=== PATIENT | female | born 1945 | race Caucasian/White ===

== ENCOUNTER 2018-01-14 13:20 | Emergency (ER) | payer MEDICARE, OTHER ==
--- NOTE | 2018-01-14 14:20 | ED Physician Documentation ---
PD HPI FOCAL NEURO - Stated complaint Stated Complaint: BACK PX,HEAD PX,FOGGY,WEAKNESS,RUNNY NOSE - Chief complaint Chief Complaint: Neuro - History obtained from History obtained from: Patient - History of Present Illness Timing - onset: Other (She has had gradual onset frontal sinus pressure associated with rhinorrhea but breathing okay for the last 4 weeks. She also complains of feeling foggy and some diffuse back pain. She has had a cough but no shortness of breath or fevers. It is not the worst headache of her life, in fact it is pretty mild. There is no associated visual deficits. It was not sudden in onset.) Review of Systems Constitutional: reports: Fatigue. 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 - Present Medications Home Medications: Ambulatory Orders Medication Instructions Recorded Confirmed Hormones 1 ea PO DAILY 08/07/15 08/08/15 Reyes Cit/D3/K/Mag Ox/Stron/Bor 1 amp PO DAILY 08/08/15 08/08/15 [Theracal D4000 Tablet] Multivitamin [Multi-Day Vitamins] 1 ea PO DAILY 08/08/15 08/08/15 Vitamin B Complex [B Complex] 1 ea PO DAILY 08/08/15 08/08/15 Amoxicillin 500 mg PO TID #30 capsule 01/14/18 Losartan [Cozaar] 50 mg PO DAILY 01/14/18 01/14/18 Mometasone Furoate [Nasonex] 1 spray NS BID #1 spray.pump 01/14/18 - Allergies Allergies/Adverse Reactions: Allergies Allergy/AdvReac Type Severity Reaction Status Date / Time Sulfa (Sulfonamide Allergy Respiratory Verified 01/14/18 13:27 Antibiotics) PD ED PE NORMAL - Vitals Vital signs reviewed: Yes - General General: Alert and oriented X 3, No acute distress - HEENT HEENT: PERRL, EOMI, Ears normal, Moist mucous membranes, Pharynx benign - Neck Neck: Supple, no meningeal sign, No bony TTP - Cardiac Cardiac: RRR, No murmur - Respiratory Respiratory: No respiratory distress, Clear bilaterally - Abdomen Abdomen: Non tender - Neuro Neuro: Alert and oriented X 3, tong hooker 2-12 intact, Normal speech Eye Opening: Spontaneous Motor: Obeys Commands Verbal: Oriented GCS Score: 15 - Psych Psych: Normal mood, Normal affect Results - Vitals Vitals: Vital Signs - 24 hr 01/14/18 13:24 Temperature 36.8 C Heart Rate 72 Respiratory 18 Rate Blood Pressure 188/81 H O2 Saturation 100 Oxygen O2 Source Room air - Labs Labs: Laboratory Tests 01/14/18 01/14/18 01/14/18 14:27 14:27 14:27 WBC 4.2 L RBC 4.23 Hgb 12.3 Hct 36.7 L MCV 86.8 MCH 29.1 MCHC 33.5 RDW 13.9 Plt Count 193 MPV 8.0 Neut # 3.0 Lymph # 0.[address] [place] # 0.3 Eos # 0.2 Baso # 0.0 Absolute Nucleated RBC 0.00 Nucleated RBC % 0.0 ESR 7 Sodium 138 Potassium 3.9 Chloride 104 Carbon Dioxide 28 Anion Gap 6.0 BUN 16 Creatinine 0.8 Estimated GFR (MDRD) 71 L Glucose 91 Calcium 8.7 Total Bilirubin 0.7 AST 25 ALT 18 Alkaline Phosphatase 58 C-Reactive Protein < 1.0 Total Protein 6.6 L Albumin 4.0 Globulin 2.6 Albumin/Globulin Ratio 1.5 Lipase 26 - Rads (name of study) CT Head Radiology: EMP read contemporaneously (normal) PD MEDICAL DECISION MAKING - ED course ED course: 72-year-old woman with complaints of headache, been feeling foggy. She has a runny nose and sinus pressure but no real infectious symptoms otherwise. She has a specific concern for pneumonia because she has been exposed but she denies either significant cough or shortness of breath or fevers. She does fit IDSA guidelines for antibiotic treatment for sinusitis given the time course of 4 weeks. Wanted to screen her for giant cell arteritis, her sed rate/CRP are low normal. Departure - Departure Disposition: 01 Home, Self Care Clinical Impression: Sinusitis Qualifiers: Sinusitis location: maxillary Chronicity: acute Recurrence: non-recurrent Qualified Code(s): J01.00 - Acute maxillary sinusitis, unspecified Headache Qualifiers: Headache type: unspecified Headache chronicity pattern: acute headache Intractability: not intractable Qualified Code(s): R51 - Headache Condition: Good Record reviewed to determine appropriate education?: Yes Instructions: ED Headache Sinus Prescriptions: Amoxicillin 500 mg PO TID #30 capsule Mometasone Furoate [Nasonex] 1 spray NS BID #1 spray.pump Comments: Call your doctor to arrange a follow-up appointment, make the next available appointment. In the interim, return anytime if worse or if new symptoms develop. Your blood pressure was elevated today on check into the emergency department. This does not mean that you have hypertension, it is a common phenomenon to come to the emergency department and have elevated blood pressure. I recommend that you see your primary care physician within the week to have it rechecked when you are feeling better.
[2018-01-14 14:35] LABS: BASOPHILS % (AUTO) 0.7 %; EOSINOPHILS # (AUTO) 0.2 10^3/uL (0.0-0.7); EOSINOPHILS % (AUTO) 3.8 %; HGB - HEMOGLOBIN 12.3 g/dL (12.0-16.0); LYMPHOCYTES # (AUTO) 0.7 10^3/uL (1.5-3.5); MEAN CORPUSCULAR HEMOGLOBIN 29.1 pg (27.0-31.0); MEAN CORPUSCULAR HGB CONC 33.5 g/dL (32.0-36.0); MEAN CORPUSCULAR VOLUME 86.8 fL (81.0-99.0); MONOCYTES # (AUTO) 0.3 10^3/uL (0.0-1.0); MONOCYTES % (AUTO) 7.6 %; NEUTROPHILS % (AUTO) 71.9 %; PLT - PLATELET COUNT 193 10^3/uL (130-450); RED BLOOD COUNT 4.23 10^6/uL (4.20-5.40); RED CELL DISTRIBUTION WIDTH 13.9 % (12.0-15.0); WHITE BLOOD COUNT 4.2 x10^3/uL (4.8-10.8)
[2018-01-14 14:54] LABS: ALBUMIN/GLOBULIN RATIO 1.5 (1.0-2.2); ALKALINE PHOSPHATASE 58 IU/L (42-121); ALT ALANINE AMINOTRANSFERASE 18 IU/L (10-60); AST ASPARTATE AMINOTRANSFERASE 25 IU/L (10-42); BILIRUBIN,TOTAL 0.7 mg/dL (0.2-1.0); BUN - BLOOD UREA NITROGEN 16 mg/dL (6-20); CALCIUM 8.7 mg/dL (8.5-10.3); CARBON DIOXIDE - CO2 28 mmol/L (21-32); CHLORIDE 104 mmol/L (101-111); CREATININE 0.8 mg/dL (0.4-1.0); GFR - MDRD 71 (>89); GLUCOSE 91 mg/dL (70-100); LIPASE 26 U/L (22-51); SODIUM 138 mmol/L (135-145); TOTAL PROTEIN 6.6 g/dL (6.7-8.2)
[2018-01-14 14:56] LABS: CRP - C-REACTIVE PROTEIN < 1.0 mg/dL (0-1.0)
--- NOTE | 2018-01-14 15:06 | CT Report ---
EXAM: CT HEAD EXAM DATE: 01/14/2018 02:33 PM. CLINICAL HISTORY: Headache, sinus pain. COMPARISON: None. TECHNIQUE: Multiaxial CT images were obtained from the foramen magnum to the vertex. Reformats: Coron al. IV contrast: None. In accordance with CT protocol optimization, one or more of the following dose reduction techniques w ere utilized for this exam: automated exposure control, adjustment of mA and/or KV based on patient s ize, or use of iterative reconstructive technique. FINDINGS: Parenchyma: No intraparenchymal hemorrhage. No evidence of mass, midline shift, or CT findings of inf arction. Luo-white differentiation is distinct. Mild periventricular hypoattenuation seen. Extraaxial Spaces: Mild atrophy present. No subdural or epidural collections identified. Ventricles: Normal in size and position. Sinuses and Orbits: Imaged paranasal sinuses, orbits, and mastoids show no significant abnormality. Bones: No evidence of fracture or calvarial defect. Other: None. IMPRESSION: Mild senescent changes without CT evidence of acute intracranial disease. No gross air-fl uid levels seen in the sinuses to suggest acute sinusitis. [facility] Referring Provider Line: [phone] SITE ID: [id number]
[2018-01-14 15:25] VITALS: BP 186/86
== END 2018-01-14 15:23 | disposition home or self-care (01) ==
LOC: ED 13:20
DX: J01.00 Acute maxillary sinusitis, unspecified (principal); J44.9 Chronic obstructive pulmonary disease, unspecified; R03.0 Elevated blood-pressure reading, without diagnosis of hypertension
CPT/HCPCS: 36415; 70450; 80053; 83690; 85025; 85651; 86140; 99283

== ENCOUNTER 2018-01-27 02:36 | Emergency (ER) | payer MEDICARE, OTHER ==
[2018-01-27 02:44] VITALS: BP 179/86
[2018-01-27 02:50] LABS: BILIRUBIN,URINE NEGATIVE (NEGATIVE); GLUCOSE, URINE (UA) NEGATIVE (NEGATIVE); KETONES,URINE (UA) NEGATIVE (NEGATIVE); LEUKOCYTE ESTERASE, URINE MODERATE (NEGATIVE); NITRITE,URINE NEGATIVE (NEGATIVE); OCCULT BLOOD,URINE MODERATE (NEGATIVE); PH,URINE 7.5 PH (5.0-7.5); PROTEIN,URINE 30 mg/dL (NEGATIVE); UROBILINOGEN,URINE 0.2 (NORMAL) E.U./dL (NORMAL)
--- NOTE | 2018-01-27 02:56 | ED Physician Documentation ---
PD HPI FEMALE - Stated complaint Stated Complaint: R SIDE/BACK PX - Chief complaint Chief Complaint: UTI - History obtained from History obtained from: Patient - History of Present Illness Timing - onset: Yesterday Timing - details: Gradual onset, Still present Associated symptoms: Abdominal pain, Dysuria, Urinary frequency Similar symptoms before: No diagnosis Recently seen: Emergency Dept - Additional information Additional information: patient is a 72 year old female with a history of htn who is presenting to the emergency department for dysuria, urinary frequency and right sided flank pain. Patient states that she has recently been treated for a sinus infection and had been on amoxicillin. Patient states that she thinks it might have been holding off the bladder infection. patient states that after she finished the antibiotics she has had increased frequency and dysuria. 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 - Present Medications Home Medications: Ambulatory Orders Medication Instructions Recorded Confirmed Hormones 1 ea PO DAILY 08/07/15 08/08/15 Reyes Cit/D3/K/Mag Ox/Stron/Bor 1 amp PO DAILY 08/08/15 08/08/15 [Theracal D4000 Tablet] Multivitamin [Multi-Day Vitamins] 1 ea PO DAILY 08/08/15 08/08/15 Vitamin B Complex [B Complex] 1 ea PO DAILY 08/08/15 08/08/15 Losartan [Cozaar] 50 mg PO DAILY 01/14/18 01/14/18 Mometasone Furoate [Nasonex] 1 spray NS BID #1 spray.pump 01/14/18 Cephalexin [Keflex] 500 mg PO Q8HR 7 Days capsule 01/27/18 Phenazopyridine HCl [Pyridium] 200 mg PO TID PRN #6 tablet 01/27/18 - Allergies Allergies/Adverse Reactions: Allergies Allergy/AdvReac Type Severity Reaction Status Date / Time Sulfa (Sulfonamide Allergy Respiratory Verified 01/27/18 02:41 Antibiotics) - Social History Does the pt smoke?: No Smoking Status: Never smoker Does the pt drink ETOH?: Yes Does the pt have substance abuse?: No - Immunizations Immunizations are current?: Yes - POLST Patient has POLST: No PD ED PE NORMAL - Vitals Vital signs reviewed: Yes - General General: Alert and oriented X 3, No acute distress, Well developed/nourished - HEENT HEENT: Moist mucous membranes - Cardiac Cardiac: RRR - Respiratory Respiratory: No respiratory distress - Abdomen Abdomen: Non distended - Derm Derm: Normal color, Warm and dry - Extremities Extremities: No deformity - Neuro Neuro: Alert and oriented X 3, No motor deficit Eye Opening: Spontaneous Results - Vitals Vitals: Vital Signs - 24 hr 01/27/18 02:38 Temperature 36.9 C Heart Rate 78 Respiratory 16 Rate Blood Pressure 179/86 H O2 Saturation 96 Oxygen O2 Source Room air - Labs Labs: Laboratory Tests 01/27/18 02:44 Urine Color YELLOW Urine Clarity HAZY Urine pH 7.5 Ur Specific [place] 1.010 Urine Protein 30 H Urine Glucose (UA) NEGATIVE Urine Ketones NEGATIVE Urine Occult Blood MODERATE H Urine Nitrite NEGATIVE Urine Bilirubin NEGATIVE Urine Urobilinogen 0.2 (NORMAL) Ur Leukocyte Esterase MODERATE H Urine RBC 6-10 H Urine WBC >25 H Ur Squamous Epith Cells FEW Squamous Urine Bacteria Few Ur Microscopic Review INDICATED Urine Culture Comments INDICATED PD MEDICAL DECISION MAKING - ED course Complexity details: reviewed old records, reviewed results, re-evaluated patient , considered differential, d/w patient ED course: Patient was seen and examined at bedside. patient was well appearing and in no acute distress. Urine was collected and sent. Findings were consistent with urinary tract infection. Patient was started on keflex and pyridium. patient was able to tolerate PO without difficulty. Patient was afebrile and well appearing. Patient required no further work up and was stable for discharge with outpatient follow up. Departure - Departure Disposition: 01 Home, Self Care Clinical Impression: Urinary tract infection Condition: Good Instructions: ED UTI Cystitis Female Follow-Up: primary,care provider [Other] - Within 3 Days Prescriptions: Cephalexin [Keflex] 500 mg PO Q8HR 7 Days capsule Phenazopyridine HCl [Pyridium] 200 mg PO TID PRN #6 tablet PRN Reason: dysuria Comments: Your symptoms today are being caused by a urinary tract infection. you had your first dose of antibiotics tonight and will need to be on them for a week. You should make sure you stay well hydrated and increase your fluid intake. You should follow up with your doctor early next week. You may return to the emergency department at any time for new, worsening or uncontrollable symptoms.
[2018-01-27 02:58] LABS: CLARITY,URINE HAZY (CLEAR)
[2018-01-27 02:59] LABS: BACTERIA,URINE Few /HPF (None Seen); SQUAMOUS EPITHELIAL CELL,UR FEW Squamous (<= Few)
[2018-01-27] MEDS ORDERED: PHENAZOPYRIDINE 100 MG TABLET PO STA (03:03)
[2018-01-27] MEDS ORDERED: cephALEXin 250 MG CAPSULE PO STA (03:03)
== END 2018-01-27 03:11 | disposition home or self-care (01) ==
LOC: ED 02:36
DX: N39.0 Urinary tract infection, site not specified (principal); I10 Essential (primary) hypertension
CPT/HCPCS: 81001; 87086; 87181; 99283; A9270; 81003

== ENCOUNTER 2018-02-08 20:15 | Emergency (ER) | payer MEDICARE, OTHER ==
[2018-02-08 20:33] LABS: BILIRUBIN,URINE NEGATIVE (NEGATIVE); GLUCOSE, URINE (UA) NEGATIVE (NEGATIVE); KETONES,URINE (UA) NEGATIVE (NEGATIVE); LEUKOCYTE ESTERASE, URINE MODERATE (NEGATIVE); NITRITE,URINE NEGATIVE (NEGATIVE); OCCULT BLOOD,URINE MODERATE (NEGATIVE); PROTEIN,URINE NEGATIVE (NEGATIVE); UROBILINOGEN,URINE 0.2 (NORMAL) E.U./dL (NORMAL)
[2018-02-08 20:34] LABS: CLARITY,URINE HAZY (CLEAR)
[2018-02-08] MEDS ORDERED: NITROFURANTOIN MACRO 100 MG CAPSULE PO STA (20:35)
[2018-02-08] MEDS ORDERED: PHENAZOPYRIDINE 100 MG TABLET PO STA (20:35)
--- NOTE | 2018-02-08 20:37 | ED Physician Documentation ---
PD HPI FEMALE - Stated complaint Stated Complaint: FEMALE - Chief complaint Chief Complaint: UTI - History obtained from History obtained from: Patient - History of Present Illness Timing - onset: Today (Just a few hours now urinary frequency and burning dysuria at the end of the stream without flank pain, fevers or nausea. She had a UTI a few weeks ago, grew out E. coli.) Review of Systems Constitutional: denies: Fever, Chills GI: denies: Abdominal Pain, Nausea : reports: Dysuria, Frequency. 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 - Present Medications Home Medications: Ambulatory Orders Medication Instructions Recorded Confirmed Hormones 1 ea PO DAILY 08/07/15 02/08/18 Losartan [Cozaar] 50 mg PO DAILY 01/14/18 02/08/18 Mometasone Furoate [Nasonex] 1 spray NS BID #1 spray.pump 01/14/18 02/08/18 Nitrofurantoin Monohyd/M-Cryst 1 tab PO BID 5 Days capsule 02/08/18 [Macrobid 100 mg Capsule] Phenazopyridine HCl [Pyridium] 200 mg PO TID #6 tablet 02/08/18 - Allergies Allergies/Adverse Reactions: Allergies Allergy/AdvReac Type Severity Reaction Status Date / Time Sulfa (Sulfonamide Allergy Respiratory Verified 02/08/18 20:20 Antibiotics) - Social History Does the pt smoke?: No Smoking Status: Never smoker Does the pt drink ETOH?: Yes Does the pt have substance abuse?: No - Immunizations Immunizations are current?: Yes - POLST Patient has POLST: No PD ED PE NORMAL - Vitals Vital signs reviewed: Yes - General General: Alert and oriented X 3, No acute distress - Abdomen Abdomen: Normal bowel sounds, Soft, Non tender - Back Back: No CVA TTP - Neuro Neuro: Alert and oriented X 3, Normal speech Results - Vitals Vitals: Vital Signs - 24 hr 02/08/18 02/08/18 20:16 20:44 Temperature 36.4 C L Heart Rate 60 76 Respiratory 16 17 Rate Blood Pressure 216/92 H 186/87 H O2 Saturation 100 99 Oxygen O2 Source Room air - Labs Labs: Laboratory Tests 02/08/18 20:27 Urine Color YELLOW Urine Clarity HAZY Urine pH 6.0 Ur Specific [place] <=1.005 Urine Protein NEGATIVE Urine Glucose (UA) NEGATIVE Urine Ketones NEGATIVE Urine Occult Blood MODERATE H Urine Nitrite NEGATIVE Urine Bilirubin NEGATIVE Urine Urobilinogen 0.2 (NORMAL) Ur Leukocyte Esterase MODERATE H Urine RBC 6-10 H Urine WBC >25 H Ur Squamous Epith Cells NONE SEEN Urine Bacteria None Seen Ur Microscopic Review INDICATED Urine Culture Comments INDICATED Departure - Departure Disposition: Home, Self Care Clinical Impression: Cystitis, Uncontrolled hypertension Condition: Good Record reviewed to determine appropriate education?: Yes Instructions: ED UTI Cystitis Female Prescriptions: Nitrofurantoin Monohyd/M-Cryst [Macrobid 100 mg Capsule] 1 tab PO BID 5 Days capsule Phenazopyridine HCl [Pyridium] 200 mg PO TID #6 tablet Comments: Follow-up with Dr. Ibrahim within the week, have her check your blood pressure , potentially adding new medications for your blood pressure. Return if worsening. If you continue to have frequent UTIs also talk with Patrice about referral to gynecology. We will culture your urine, the results should be done in 48-72 hours. If an antibiotic change is necessary we will call you. Return if worse in the meantime, especially if you develop increasing flank pain, fevers, or cannot keep down the medication. Discharge Date/Time: 02/08/18 20:47
[2018-02-08 20:43] LABS: BACTERIA,URINE None Seen /HPF (None Seen); SQUAMOUS EPITHELIAL CELL,UR NONE SEEN (<= Few)
[2018-02-08 20:47] VITALS: BP 186/87
== END 2018-02-08 20:47 | disposition home or self-care (01) ==
LOC: ED 20:15
DX: N30.90 Cystitis, unspecified without hematuria (principal); I10 Essential (primary) hypertension
CPT/HCPCS: 81001; 87086; 99283; A9270; 81003

== ENCOUNTER 2018-03-02 08:00 | Outpatient (CLI) | payer MEDICARE, OTHER ==
[2018-03-03 15:42] LABS: BILIRUBIN,URINE NEGATIVE (NEGATIVE); GLUCOSE, URINE (UA) NEGATIVE (NEGATIVE); KETONES,URINE (UA) NEGATIVE (NEGATIVE); LEUKOCYTE ESTERASE, URINE NEGATIVE (NEGATIVE); NITRITE,URINE NEGATIVE (NEGATIVE); OCCULT BLOOD,URINE NEGATIVE (NEGATIVE); PROTEIN,URINE NEGATIVE (NEGATIVE); UROBILINOGEN,URINE 0.2 (NORMAL) E.U./dL (NORMAL)
[2018-03-03 16:07] LABS: BACTERIA,URINE None Seen /HPF (None Seen); CLARITY,URINE CLEAR (CLEAR); RBC,URINE None Seen /HPF (0-5); SQUAMOUS EPITHELIAL CELL,UR NONE SEEN (<= Few)
== END 2018-03-02 23:59 ==
LOC: LAB.R 08:00
PROVIDERS: ATTEND Obstetrics & Gynecology
DX: R82.99 Other abnormal findings in urine (principal)
CPT/HCPCS: 81001; 87086

== ENCOUNTER 2018-10-16 08:40 | Outpatient (CLI) | payer MEDICARE, OTHER ==
[2018-10-16 09:02] LABS: EOSINOPHILS % (AUTO) 2.8 %; HGB - HEMOGLOBIN 13.4 g/dL (12.0-16.0); LYMPHOCYTES % (AUTO) 29.4 %; MEAN CORPUSCULAR HEMOGLOBIN 27.6 pg (27.0-31.0); MEAN CORPUSCULAR HGB CONC 33.3 g/dL (32.0-36.0); MEAN CORPUSCULAR VOLUME 82.9 fL (81.0-99.0); MEAN PLATELET VOLUME 7.4 fL (7.9-10.8); MONOCYTES % (AUTO) 10.6 %; NEUTROPHILS % (AUTO) 56.2 %; PLT - PLATELET COUNT 216 10^3/uL (130-450); RED BLOOD COUNT 4.83 10^6/uL (4.20-5.40); RED CELL DISTRIBUTION WIDTH 14.8 % (12.0-15.0); WHITE BLOOD COUNT 2.6 x10^3/uL (4.8-10.8)
[2018-10-16 09:04] LABS: ABNORMAL LYMPHS % (MANUAL) 0 %; BAND NEUTROPHILS % (MANUAL) 0 %
[2018-10-16 09:21] LABS: HB2 TOTAL 14.6 g/dL; HEMOGLOBIN A1C 0.5 g/dL; HEMOGLOBIN A1C % 5.3 % (4.6-6.2)
[2018-10-16 09:22] LABS: % IRON SATURATION 21 % (20-50); ALBUMIN 4.4 g/dL (3.2-5.5); ALBUMIN/GLOBULIN RATIO 1.6 (1.0-2.2); ALKALINE PHOSPHATASE 50 IU/L (42-121); ALT ALANINE AMINOTRANSFERASE 18 IU/L (10-60); AST ASPARTATE AMINOTRANSFERASE 24 IU/L (10-42); BILIRUBIN,TOTAL 0.7 mg/dL (0.2-1.0); BUN - BLOOD UREA NITROGEN 17 mg/dL (6-20); CALCIUM 9.5 mg/dL (8.5-10.3); CARBON DIOXIDE - CO2 29 mmol/L (21-32); CHLORIDE 99 mmol/L (101-111); CHOL/HDL RATIO 2.6 (<4.4); CHOLESTEROL 250 mg/dL; CREATININE 0.8 mg/dL (0.4-1.0); GFR - MDRD 70 (>89); GLUCOSE 110 mg/dL (70-100); HDL CHOLESTEROL 95 mg/dL; IRON 87 ug/dL (28-170); LDL CHOLESTEROL,CALCULATED 139 mg/dL; LDL/HDL RATIO 1.5 (<4.4); MAGNESIUM 2.3 mg/dL (1.7-2.8); SODIUM 137 mmol/L (135-145); TOTAL IRON BINDING CAPACITY 414 ug/dL (250-450); TOTAL PROTEIN 7.1 g/dL (6.7-8.2); TRANSFERRIN 296 mg/dL (192-382); URIC ACID 5.4 mg/dL (2.6-7.2); VLDL CHOLESTEROL 16 mg/dL
[2018-10-16 09:35] LABS: THYROID STIMULATING HORMONE 3.7 uIU/mL (0.34-5.60)
[2018-10-16 09:41] LABS: FERRITIN 19.1 ng/mL (11.0-306.8)
[2018-10-16 11:29] LABS: BASOPHILS % (MANUAL) 1 %; EOSINOPHILS # (MANUAL) 0.1 10^3/uL (0-0.7); LYMPHOCYTES % (MANUAL) 31 %; MONOCYTES # (MANUAL) 0.2 10^3/uL (0.0-1.0); MYELOCYTES % (MANUAL) 1 %; NEUTROPHILS # (MANUAL) 1.3 10^3/uL (1.5-6.6); NEUTROPHILS % (MANUAL) 49 %
[2018-10-16 11:30] LABS: DIFFERENTIAL COMMENT MANUAL DIFFERENTIAL
== END 2018-10-16 08:41 | disposition home or self-care (01) ==
LOC: LAB 08:40
PROVIDERS: ATTEND Internal Medicine
DX: K90.9 Intestinal malabsorption, unspecified (principal); R53.83 Other fatigue; R25.2 Cramp and spasm; R00.2 Palpitations; G47.30 Sleep apnea, unspecified; Z13.6 Encounter for screening for cardiovascular disorders; I10 Essential (primary) hypertension; N95.9 Unspecified menopausal and perimenopausal disorder; D72.819 Decreased white blood cell count, unspecified; Z79.899 Other long term (current) drug therapy
CPT/HCPCS: 36415; 80053; 80061; 82607; 82728; 83036; 83540; 83721; 83735; 84425; 84443; 84466; 84550; 85025

== ENCOUNTER 2019-01-09 14:08 | Outpatient (CLI) | payer MEDICARE, OTHER ==
--- NOTE | 2019-01-10 08:50 | Mammography Report ---
Reason: SCREENING MAMMO Procedure Date: 01/09/2019 Accession Number: [id number] / [id number] Procedure: SUSAN - Screening Mammo w/[facility]ner CPT Code: FULL RESULT: EXAM: Screening Mammo DATE: 01/09/2019 2:43 PM CLINICAL HISTORY: Screening encounter. History of early menses. TECHNIQUE: (B) - Bilateral CC and MLO views were obtained. A right laterally exaggerated CC views obtained. COMPARISON: 07/05/2014. PARENCHYMAL PATTERN: (D) - The breast(s) demonstrate(s) heterogeneously dense fibroglandular parenchyma. FINDINGS: There are no suspicious masses, calcifications, or areas of distortion. IMPRESSION: Negative examination. BI-RADS category 1. RECOMMENDATION: (ANNUAL) - Recommend routine annual screening mammography. BI-RADS CATEGORY: (1) - Negative. STANDARD QUALIFYING STATEMENTS: 1. This examination was not reviewed with the aid of Computer-Aided Detection (CAD). 2. A negative or benign imaging report should not preclude biopsy if clinically suspicious findings are present. 3. Dense breasts may obscure an underlying neoplasm. 4. This examination was reviewed without the aid of 3D breast imaging (tomosynthesis).
== END 2019-01-09 14:09 | disposition home or self-care (01) ==
LOC: DI 14:08
PROVIDERS: ATTEND Internal Medicine
DX: Z12.31 Encounter for screening mammogram for malignant neoplasm of breast (principal)
CPT/HCPCS: 77063; 77067

== ENCOUNTER 2019-06-15 14:07 | Emergency (ER) | payer MEDICARE, OTHER ==
--- NOTE | 2019-06-15 14:49 | XRAY Report ---
Reason: Chest Pain Procedure Date: 06/15/2019 Accession Number: [id number] / [id number] Procedure: XR - Chest 1 View X-Ray CPT Code: 60831 FULL RESULT: EXAM: CHEST RADIOGRAPHY EXAM DATE: 06/15/2019 02:42 PM. CLINICAL HISTORY: Chest Pain. COMPARISON: None. TECHNIQUE: 1 view. FINDINGS: LUNGS: The lungs are clear. PLEURA: No significant pleural effusion. No clinically significant pneumothorax. MEDIASTINUM: Heart and mediastinal contours are notable for aortic calcification. The cardiac silhouette is normal in size. BONES: No suspicious osseous lesions. IMPRESSION: No acute cardiopulmonary abnormality. [facility]
--- NOTE | 2019-06-15 15:08 | ED Physician Documentation ---
History of Present Illness - Stated complaint Stated Complaint: PATRICIO BARRAGAN - Chief complaint Chief Complaint: Cardiac - History obtained from History obtained from: Patient - History of Present Illness Pain level max: 8 Pain level now: 0 - Additonal information Additional information: 74-year-old female states approximately 5 to 6 hours ago began to feel a tightness across her back and in her shoulder blades bilaterally. She states that she occasionally has had this type of discomfort over the years. She states that it then spread to her chest and made her chest feel tight. She states that she had trouble breathing and was nauseated. Nothing made it better or worse. Does not have a history of acute coronary syndrome. Does have a history of hypertension. She quit smoking 20 to 30 years ago. She states that she did drink wine last night and had coffee this morning. Does not have a recent cardiac stress test. Review of Systems Ten Systems: 10 systems reviewed and negative Constitutional: denies: Fever, Chills Nose: denies: Rhinorrhea / runny nose Throat: denies: Sore throat Cardiac: reports: Chest pain / pressure Respiratory: reports: Dyspnea. 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 - Present Medications Home Medications: Ambulatory Orders Medication Instructions Recorded Confirmed Hormones 1 ea PO DAILY 08/07/15 02/08/18 Losartan [Cozaar] 50 mg PO DAILY 01/14/18 02/08/18 Mometasone Furoate [Nasonex] 1 spray NS BID #1 spray.pump 01/14/18 02/08/18 Nitrofurantoin Monohyd/M-Cryst 1 tab PO BID 5 Days capsule 02/08/18 [Macrobid 100 mg Capsule] Phenazopyridine HCl [Pyridium] 200 mg PO TID #6 tablet 02/08/18 - Allergies Allergies/Adverse Reactions: Allergies Allergy/AdvReac Type Severity Reaction Status Date / Time Sulfa (Sulfonamide Allergy Respiratory Verified 06/15/19 14:20 Antibiotics) - Social History Does the pt smoke?: No Smoking Status: Never smoker Does the pt drink ETOH?: Yes Does the pt have substance abuse?: No - Immunizations Immunizations are current?: Yes - POLST Patient has POLST: No PD ED PE NORMAL - Vitals Vital signs reviewed: Yes - General General: Alert and oriented X 3, No acute distress, Well developed/nourished - HEENT HEENT: Moist mucous membranes - Neck Neck: Supple, no meningeal sign - Cardiac Cardiac: RRR, Strong equal pulses - Respiratory Respiratory: No respiratory distress, Clear bilaterally - Abdomen Abdomen: Soft, Non tender, Non distended - Derm Derm: Warm and dry - Extremities Extremities: No edema, No calf tenderness / cord - Neuro Neuro: Alert and oriented X 3 - Psych Psych: Normal mood, Normal affect Results - Vitals Vitals: Vital Signs - 24 hr 06/15/19 06/15/19 06/15/19 14:18 15:30 16:58 Temperature 36.0 C L 36.7 C Heart Rate 69 62 71 Respiratory 12 12 17 Rate Blood Pressure 158/72 H 160/82 H 151/66 H O2 Saturation 100 98 97 Oxygen O2 Source Room air - EKG (time done) 1414 Rate: Rate (enter#) (70) Rhythm: NSR [place]: Normal Intervals: Normal [place] Ischemia: Normal ST segments, Q waves (V1-3) - Labs Labs: Laboratory Tests 06/15/19 06/15/19 06/15/19 15:00 15:20 15:20 WBC 3.2 L RBC 4.15 L Hgb 11.5 L Hct 35.9 L MCV 86.5 MCH 27.7 MCHC 32.0 RDW 13.3 Plt Count 204 MPV 10.1 Neut # (Auto) 2.0 Lymph # (Auto) 0.8 L [place] # (Auto) 0.3 Eos # (Auto) 0.1 Baso # (Auto) 0.0 Absolute Nucleated RBC 0.00 Nucleated RBC % 0.0 Sodium 139 Potassium 3.4 L Chloride 100 L Carbon Dioxide 28 Anion Gap 11.0 BUN 20 Creatinine 0.8 Estimated GFR (MDRD) 70 L Glucose 97 Calcium 9.4 Total Bilirubin 0.8 AST 23 ALT 15 Alkaline Phosphatase 51 Troponin I High Sens Total Protein 7.4 Albumin 4.4 Globulin 3.0 Albumin/Globulin Ratio 1.5 Lipase 34 Urine Color LT. YELLOW Urine Clarity CLEAR Urine pH 7.0 Ur Specific Hart <=1.005 Urine Protein NEGATIVE Urine Glucose (UA) NEGATIVE Urine Ketones NEGATIVE Urine Occult Blood NEGATIVE Urine Nitrite NEGATIVE Urine Bilirubin NEGATIVE Urine Urobilinogen 0.2 (NORMAL) Ur Leukocyte Esterase NEGATIVE Ur Microscopic Review NOT INDICATED Urine Culture Comments NOT INDICATED 06/15/19 15:20 WBC RBC Hgb Hct MCV MCH MCHC RDW Plt Count MPV Neut # (Auto) Lymph # (Auto) [place] # (Auto) Eos # (Auto) Baso # (Auto) Absolute Nucleated RBC Nucleated RBC % Sodium Potassium Chloride Carbon Dioxide Anion Gap BUN Creatinine Estimated GFR (MDRD) Glucose Calcium Total Bilirubin AST ALT Alkaline Phosphatase Troponin I High Sens 3.3 Total Protein Albumin Globulin Albumin/Globulin Ratio Lipase Urine Color Urine Clarity Urine pH Ur Specific Hart Urine Protein Urine Glucose (UA) Urine Ketones Urine Occult Blood Urine Nitrite Urine Bilirubin Urine Urobilinogen Ur Leukocyte Esterase Ur Microscopic Review Urine Culture Comments - Rads (name of study) Chest x-ray Radiology: Prelim report reviewed, EMP read contemporaneously, See rad report (No acute cardiopulmonary abnormality) CT chest Radiology: Prelim report reviewed, EMP read contemporaneously, See rad report (No aneurysm or dissection. 2. 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 Liver cysts ) PD MEDICAL DECISION MAKING - ED course Complexity details: reviewed results, re-evaluated patient, considered differential (No ST elevation [place], no aortic dissection, no PE, no tension pneumothorax, no aortic aneurysm), d/w patient ED course: 74-year-old female presents to the emergency department with back and chest pain. No acute findings on chest x-ray, EKG or laboratory testing. CT of the chest was performed to evaluate for potential aortic dissection and/or aneurysm. This was negative, but does reveal a narrowing of the celiac artery. We will have her follow-up with her doctor for this. She does not seem to be having postprandial pain. She is asymptomatic here. No evidence of acute coronary syndrome. Possible GERD? She drank wine last night and only coffee this morning. She may benefit from an EGD to evaluate for GERD. Patient counseled regarding signs and symptoms for which I believe and urgent re-evaluation would be necessary. Patient with good understanding of and agreement to plan and is comfortable going home at this time This document was made in part using voice recognition software. While efforts are made to proofread this document, sound alike and grammatical errors may occur. Departure - Departure Disposition: Home, Self Care Clinical Impression: Chest pain Qualifiers: Chest pain type: unspecified Qualified Code(s): R07.9 - Chest pain, unspecified Condition: Good Instructions: ED Chest Pain Atypical Unkn Cause Follow-Up: Swati Ibrahim MD [Primary Care Provider] - Within 1 week Comments: The cause of your symptoms is unclear, but may be related to your esophagus. An EGD would be useful and this can be arranged with your doctor. Your heart tests are normal today. You do have a narrowing in 1 of the arteries in your followed up with your doctor. Return if you worsen. Start on a baby aspirin daily. CT chest results: No aneurysm or dissection. 2. 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 Liver cysts Discharge Date/Time: 06/15/19 16:59
[2019-06-15 15:35] LABS: BASOPHILS % (AUTO) 0.6 %; EOSINOPHILS # (AUTO) 0.1 10^3/uL (0.0-0.7); EOSINOPHILS % (AUTO) 1.6 %; HGB - HEMOGLOBIN 11.5 g/dL (12.0-16.0); LYMPHOCYTES # (AUTO) 0.8 10^3/uL (1.5-3.5); LYMPHOCYTES % (AUTO) 25.5 %; MEAN CORPUSCULAR HEMOGLOBIN 27.7 pg (27.0-31.0); MEAN CORPUSCULAR VOLUME 86.5 fL (81.0-99.0); MEAN PLATELET VOLUME 10.1 fL (7.9-10.8); MONOCYTES # (AUTO) 0.3 10^3/uL (0.0-1.0); MONOCYTES % (AUTO) 9.3 %; NEUTROPHILS % (AUTO) 62.7 %; PLT - PLATELET COUNT 204 10^3/uL (130-450); RED BLOOD COUNT 4.15 10^6/uL (4.20-5.40); RED CELL DISTRIBUTION WIDTH 13.3 % (12.0-15.0); WHITE BLOOD COUNT 3.2 x10^3/uL (4.8-10.8)
[2019-06-15 15:41] LABS: BILIRUBIN,URINE NEGATIVE (NEGATIVE); GLUCOSE, URINE (UA) NEGATIVE (NEGATIVE); KETONES,URINE (UA) NEGATIVE (NEGATIVE); LEUKOCYTE ESTERASE, URINE NEGATIVE (NEGATIVE); NITRITE,URINE NEGATIVE (NEGATIVE); OCCULT BLOOD,URINE NEGATIVE (NEGATIVE); PROTEIN,URINE NEGATIVE (NEGATIVE); UROBILINOGEN,URINE 0.2 (NORMAL) E.U./dL (NORMAL)
[2019-06-15 15:42] LABS: ALBUMIN 4.4 g/dL (3.2-5.5); ALBUMIN/GLOBULIN RATIO 1.5 (1.0-2.2); BILIRUBIN,TOTAL 0.8 mg/dL (0.2-1.0); CALCIUM 9.4 mg/dL (8.5-10.3); CREATININE 0.8 mg/dL (0.4-1.0); TOTAL PROTEIN 7.4 g/dL (6.7-8.2)
[2019-06-15 15:43] LABS: CLARITY,URINE CLEAR (CLEAR)
[2019-06-15] MEDS ORDERED: IOVERSOL 320 100 ML VIAL IVP ONE ×2 (15:58→16:27)
--- NOTE | 2019-06-15 16:45 | CT Report ---
Reason: back pain, chest pain, eval aorta Procedure Date: 06/15/2019 Accession Number: [id number] / [id number] Procedure: CT - ANGIO CHEST W/WO CPT Code: FULL RESULT: EXAM: CT ANGIOGRAM CHEST EXAM DATE: 06/15/2019 04:24 PM. CLINICAL HISTORY: Back pain, chest pain, eval aorta. COMPARISON: None. TECHNIQUE: Routine helical imaging was performed through the chest in the arterial phase. IV contrast: 80 cc Optiray 320. Reconstructions: Coronal, sagittal, and 3D MIP reconstructions of the aorta. FINDINGS: Vascular Structures: No aneurysm, dissection, of the thoracic aorta. Atherosclerotic changes of the aorta. Ascending aorta 3.3 cm. The visualized pulmonary arteries are within normal limits. Narrowing of the celiac artery post stenotic dilatation. SMA patent. Narrowing origin of bilateral renal arteries. Lungs/Pleura: No consolidation, nodules, or edema. No effusions or pneumothorax. Dependent changes. Mediastinum: Mild coronary artery calcifications. No pericardial effusion. No significant adenopathy. Upper Abdomen: Liver cysts. Other: DJD spine. Scattered hemangiomas. IMPRESSION: 1. No aneurysm or dissection. 2. 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 Liver cysts RADIA
[2019-06-15 16:59] VITALS: BP 151/66
== END 2019-06-15 16:59 | disposition home or self-care (01) ==
LOC: ED 14:07
DX: R07.89 Other chest pain (principal); M54.9 Dorsalgia, unspecified; I10 Essential (primary) hypertension; I77.4 Celiac artery compression syndrome; I70.1 Atherosclerosis of renal artery; K76.89 Other specified diseases of liver; Z87.891 Personal history of nicotine dependence
CPT/HCPCS: 36415; 71045; 71275; 80053; 81003; 83690; 84484; 85025; 93005; 99284; Q9967; 81001; 87086

== ENCOUNTER 2019-11-30 07:09 | Outpatient (CLI) | payer MEDICARE, OTHER ==
--- NOTE | 2019-12-03 13:54 | Ultrasound Report ---
Reason: ABD PAIN Procedure Date: 11/30/2019 Accession Number: [id number] / [id number] Procedure: US - Arterial Visceral Complete CPT Code: Final Report FULL RESULT: EXAM: MESENTERIC ARTERY DOPPLER ULTRASOUND EXAM DATE: 11/30/2019 08:14 AM. CLINICAL HISTORY: Abdominal pain x1 year. Arterial stricture. Hypertension. COMPARISON: CTA chest 06/15/2019. TECHNIQUE: Real-time sonographic vascular imaging was performed by the social media campaign manager through the mesenteric arterial system with a linear transducer utilizing color-flow, Doppler flow and spectral analysis. Multiple brand representative static images were saved for review. FINDINGS: Aorta: 105.2 cm/s Celiac Ribera: Origin: 45.5 cm/s Prox: 234.7 cm/s Mid: 241.4 cm/s Dist: 125.3 cm/s SMA: Origin: 153.1 cm/s Prox: 342.6 cm/s Mid: 243.2 cm/s Dist: 164.0 cm/s Hepatic Artery: 197.7 cm/s Splenic Artery: 134.5 cm/s ROXANNE: Origin: 57.8 cm/s Prox: 112.4 cm/s Mid: 111.7 cm/s Dist: 123.6 cm/s IMPRESSION: 1. Elevated Doppler velocity from the proximal celiac artery is compatible with vessel narrowing as seen on CTA chest, presumably from the median arcuate ligament. 2. Apparent Doppler velocity acceleration of proximal SMA does not correlate with appearance on the CTA chest (which showed no proximal SMA stenosis). 3. Nonspecific elevated Doppler velocities of the common hepatic and splenic arteries, with no vessel stenosis seen on limited evaluation by CTA chest. Comment: Consider dedicated CTA abdomen (or MRA abdomen) if clinically appropriate. RADIA
== END 2019-11-30 07:10 | disposition home or self-care (01) ==
LOC: DI 07:09
PROVIDERS: ATTEND Internal Medicine
DX: I77.1 Stricture of artery (principal); R10.9 Unspecified abdominal pain
CPT/HCPCS: 93975

== ENCOUNTER 2019-12-24 21:21 | Outpatient (CLI) | payer MEDICARE, OTHER ==
[2019-12-24 21:54] LABS: CREATININE 0.9 mg/dL (0.4-1.0)
== END 2019-12-24 21:22 | disposition home or self-care (01) ==
LOC: LAB 21:21
PROVIDERS: ATTEND Internal Medicine
DX: R79.89 Other specified abnormal findings of blood chemistry (principal)
CPT/HCPCS: 82565

== ENCOUNTER 2019-12-25 12:48 | Outpatient (CLI) | payer MEDICARE, OTHER ==
[2019-12-25] MEDS ORDERED: IOVERSOL 320 100 ML VIAL IVP ONE ×2 (13:03→15:30)
--- NOTE | 2019-12-26 09:31 | CT Report ---
Reason: ABN ABD USD Procedure Date: 12/25/2019 Accession Number: [id number] / [id number] Procedure: CT - ANGIO ABDOMEN W/WO CPT Code: Final Report FULL RESULT: EXAM: CTA ABDOMEN AND PELVIS INDICATION: Abdominal pain. TECHNIQUE: Following intravenous administration of 90 mL of Optiray 320 contrast, axial sections were obtained through the abdomen and pelvis. Multiplanar 3D reconstructions are available for interpretation. In accordance with CT protocol optimization, one or more of the following dose reduction techniques were utilized for this exam: automated exposure control, adjustment of mA and/or KV based on patient size, or use of iterative reconstructive technique. COMPARISON: CHEST ANGIO 06/15/2019 4:20 PM. FINDINGS: MEASUREMENTS: At the level of the diaphragm, the aorta measures 2.0 x 2.3 mm. Above the renal arteries, the aorta measures 2.0 x 2.2 mm. Below the renal arteries, the aorta measures 1.7 x 1.9 mm. Above the iliac bifurcation, the aorta measures 1.5 x 1.5 mm. The right common iliac artery measures 8 mm. The left common iliac artery measures 11 mm. UPPER ABDOMINAL AORTA: The takeoffs of the celiac artery and SMA appear patent. Moderate mural calcification of the upper abdominal aorta. MESENTERIC ARTERIES: Appear patent. RENAL ARTERIES: Mild atheromatous calcifications at the origins, without significant stenosis. DISTAL AORTA AND ILIAC ARTERIES: Moderate mural calcification. No abdominal aortic dissection is identified. CT ABDOMEN AND PELVIS: Stable appearance of 1 cm cystic foci at the right hepatic lobe dome. The spleen, pancreas, adrenal glands, and kidneys appear within normal limits. No bowel obstruction. No pathologically enlarged lymph nodes. IMPRESSION: No aneurysmal dilatation or dissection identified of the abdominal aorta. Moderate atherosclerotic changes. RADIA
== END 2019-12-25 12:49 | disposition home or self-care (01) ==
LOC: LAB 12:48
PROVIDERS: ATTEND Internal Medicine
DX: I70.0 Atherosclerosis of aorta (principal)
CPT/HCPCS: 74175; Q9967

== ENCOUNTER 2020-07-25 10:14 | Day surgery (SDC) | payer MEDICARE, OTHER ==
[2020-07-25] MEDS ORDERED: LACTATED RINGERS 1,000 ML IV ONE ×2 (10:25→12:42)
[2020-07-25] MEDS ORDERED: MIDAZOLAM 2 MG/2 ML VIAL IVP ONE (11:40)
[2020-07-25] MEDS ORDERED: fentaNYL 250 MCG/5 ML VIAL IVP ONE (11:40)
[2020-07-25 13:00] VITALS: BP 124/54
== END 2020-07-25 10:15 | disposition home or self-care (01) ==
LOC: SDS 10:14
PROVIDERS: ATTEND Surgery
DX: Z12.11 Encounter for screening for malignant neoplasm of colon (principal); K57.30 Diverticulosis of large intestine without perforation or abscess without bleeding; I10 Essential (primary) hypertension; G47.30 Sleep apnea, unspecified; Z86.010 Personal history of colon polyps
CPT/HCPCS: G0105; J3010; J7120

== ENCOUNTER 2020-12-25 14:38 | Outpatient (CLI) | payer MEDICARE, OTHER ==
--- NOTE | 2020-12-25 16:25 | MRI Report ---
PROCEDURE: Knee LT W/O INDICATIONS: LT KNEE PAIN TECHNIQUE: Noncontrast sagittal PD fast spin echo and T2 fast spin echo with fat saturation, sagittal 3-D gradie nt sequence with fat saturation; coronal T1 spin echo and PD fast spin echo with fat saturation, and axial PD fast spin echo with fat saturation through the knee. COMPARISON: None. FINDINGS: Menisci: Medial meniscal tear involving the body and posterior horn with macerated appearance. Abnormal signal suggestive superior and inferior articular surfaces. There is also partial extrusion Minimal blunting of the free margin of the lateral meniscus. Cruciate ligaments: Anterior cruciate ligament appears intact although there is marked thickening, internal T2 hyperinten se signal changes and striated appearance suggestive of mucoid degeneration (versus chronic sprain). Posterior cruciate ligament appears intact. Medial structures: The medial collateral ligament appears intact. The semimembranosus tendon appears intact. Visualized portions of the pes anserinus tendons appear normal. No abnormal bursal fluid. Lateral structures: Lateral collateral ligament appears grossly intact. Biceps femoris tendon appears intact. Iliotibial band within normal limits. Popliteus tendon within normal limits. Anterior structures: Mild patellar tendinopathy, with prepatellar and superficial infrapatellar edema. The quadriceps tendon appears intact. Medial and lateral patellofemoral ligaments appear grossly intact. Patellar alignment is normal. Hoffa's fat pad unremarkable. Bones and cartilage: No bone marrow contusions or fractures. Within the medial compartment, diffuse partial thickness loss of the femoral and tibial cartilage. Pa rtial thickness loss of the posterior medial cartilage, with underlying subchondral cystic change and marrow edema. Within the lateral compartment, diffuse surface fraying of the femoral and tibial cartilage. Within the patellofemoral compartment, no focal cartilage defect. Joint space: Small joint effusion. No Garcia?s cyst. No specific evidence of loose body identified. IMPRESSION: Medial meniscal tear involving the body and posterior horn with slight partial extrusion. Blunted appearance of the free margin of the lateral meniscus Thickening and internal signal changes of the ACL suggestive of mucoid degeneration, versus chronic a ge indeterminate sprain. Mild patellar tendinopathy Mild degenerative joint disease as above Small joint effusion Reviewed by: Man Pineda MD on 12/25/2020 4:24 PM PDT Approved by: Man Pineda MD on 12/25/2020 4:24 PM PDT Station ID: [id number]
== END 2020-12-25 14:39 | disposition home or self-care (01) ==
LOC: DI 14:38
PROVIDERS: ATTEND Internal Medicine
DX: S83.242A Other tear of medial meniscus, current injury, left knee, initial encounter (principal); M23.8X2 Other internal derangements of left knee; M67.962 Unspecified disorder of synovium and tendon, left lower leg; M17.12 Unilateral primary osteoarthritis, left knee; M25.462 Effusion, left knee

== ENCOUNTER 2021-01-12 08:00 | Outpatient (CLI) | payer MEDICARE, OTHER ==
--- NOTE | 2021-01-12 14:04 | XRAY Report ---
PROCEDURE: Knee 4 View LT INDICATIONS: KNEE PAIN, LEFT TECHNIQUE: 4 views of the left knee(s) were acquired. COMPARISON: None. FINDINGS: Bones: No fractures or dislocations. No suspicious bony lesions. Mild to moderate medial and minim al medial patellofemoral compartment narrowing is present. Periarticular osteophytes are noted. No er osions. Soft tissues: No joint effusion. No suspicious soft tissue calcifications. 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 Reviewed by: Benita Silverman MD on 01/12/2021 2:03 PM PDT Approved by: Benita Silverman MD on 01/12/2021 2:03 PM PDT Station ID: [id number]
== END 2021-01-12 23:59 | disposition home or self-care (01) ==
LOC: DI.N 08:00
PROVIDERS: ATTEND Orthopaedic Surgery
DX: M17.12 Unilateral primary osteoarthritis, left knee (principal)

== ENCOUNTER 2021-03-14 19:41 | Emergency (ER) | payer MEDICARE, OTHER ==
[2021-03-14] MEDS ORDERED: CHERRY SYRUP 10 ML UDC PO ONE (21:10)
[2021-03-14] MEDS ORDERED: DEXAMETHASONE 10 MG/ML VIAL PO STA (21:10)
[2021-03-14] MEDS ORDERED: KETOROLAC 60 MG/2 ML VIAL IM STA (21:10)
--- NOTE | 2021-03-14 21:15 | ED Physician Documentation ---
PD HPI NECK PAIN - Stated complaint Stated Complaint: STIFF NECK - Chief complaint Chief Complaint: General - History obtained from History obtained from: Patient - History of Present Illness Timing - onset: How many weeks ago (1) Timing - duration: Weeks (1) Timing - details: Gradual onset, Still present Location: Other (neck, shoulders, head) Quality: Pain, Spasm, Sharp, Similar to prior episodes Associated symptoms: Other (pain down arms). No: Fever, Weakness, Numbness, Incontinent of urine, Unable to urinate, Hematuria, Incontinent of stool Improves with: Rest, Position, Meds Worsened by: Movement Contributing factors: Other (has had these problems for 40 years never this bad) Similar symptoms before: Diagnosis (neck spasm) Recently seen: Clinic, Other - Additional information Additional information: 70-year-old female with a history of COPD and hypertension has developed pain in her neck similar to what she has had episodes over the past 40 years. She states that this is much worse than she has had previously and that it involves her entire shoulders her neck up into her head and she has not been able to move her head well. She is gone in to see the chiropractor she had some improvement with that had recurrence of pain has seen Dr. Ibrahim is been placed on some baclofen and did not get the usual improvement she has had previously. She has had neck in order for x-ray of her neck and she has not had these imaging studies done yet. She has never had imaging of her neck and she has never been tested for polymyalgia rheumatica. Review of Systems Constitutional: denies: Fever Eyes: denies: Decreased vision Ears: denies: Ear pain Nose: denies: Congestion Throat: denies: Sore throat Cardiac: denies: Chest pain / pressure, Palpitations Respiratory: denies: Dyspnea, Cough GI: denies: Abdominal Pain, Nausea, Vomiting, Constipation, Diarrhea : denies: Dysuria, Frequency Skin: denies: Rash Musculoskeletal: reports: Neck pain, Back pain, Extremity pain Neurologic: reports: Headache. 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 - Present Medications Home Medications: Ambulatory Orders Medication Instructions Recorded Confirmed Hormones 1 ea PO DAILY 08/07/15 02/08/18 Losartan [Cozaar] 50 mg PO DAILY 01/14/18 02/08/18 Mometasone Furoate [Nasonex] 1 spray NS BID #1 spray.pump 01/14/18 02/08/18 Nitrofurantoin Monohyd/M-Cryst 1 tab PO BID 5 Days capsule 02/08/18 [Macrobid 100 mg Capsule] Phenazopyridine HCl [Pyridium] 200 mg PO TID #6 tablet 02/08/18 predniSONE [Deltasone] 2 tablet PO DAILY #10 tablet 03/14/21 - Allergies Allergies/Adverse Reactions: Allergies Allergy/AdvReac Type Severity Reaction Status Date / Time Sulfa (Sulfonamide Allergy Respiratory Verified 03/14/21 19:49 Antibiotics) - Social History Does the pt smoke?: No Smoking Status: Never smoker Does the pt drink ETOH?: Yes Does the pt have substance abuse?: No - Immunizations Immunizations are current?: Yes - POLST Patient has POLST: No PD ED PE NORMAL - Vitals Vital signs reviewed: Yes (Hypertension) - General General: Alert and oriented X 3, Well developed/nourished, Other (75-year-old female who moves her entire body to look around appears to have a stiff neck) - HEENT HEENT: Atraumatic, PERRL, EOMI - Neck Neck: Other (muscles of the neck are stiff with reduced ROM. 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, No motor deficit, No sensory deficit, Normal speech Eye Opening: Spontaneous Motor: Obeys Commands Verbal: Oriented GCS Score: 15 - Psych Psych: Normal mood, Normal affect Results - Vitals Vitals: Vital Signs - 24 hr 03/14/21 03/14/21 03/14/21 19:50 22:00 22:56 Temperature 37.0 C 36.7 C 36.7 C Heart Rate 81 68 65 Respiratory 18 16 16 Rate Blood Pressure 140/61 H 128/63 124/60 O2 Saturation 98 96 94 Oxygen O2 Source Room air - Labs Labs: Laboratory Tests 03/14/21 03/14/21 03/14/21 21:15 21:15 21:15 WBC 6.1 RBC 4.45 Hgb 11.9 L Hct 38.0 MCV 85.4 MCH 26.7 L MCHC 31.3 L RDW 13.8 Plt Count 264 MPV 9.0 Neut # (Auto) 4.7 Lymph # (Auto) 0.7 L [place] # (Auto) 0.6 Eos # (Auto) 0.1 Baso # (Auto) 0.0 Absolute Nucleated RBC 0.00 Nucleated RBC % 0.0 ESR 31 H Sodium 138 Potassium 3.4 L Chloride 99 L Carbon Dioxide 28 Anion Gap 11.0 BUN 17 Creatinine 0.8 Estimated GFR (MDRD) 70 L Glucose 111 H Calcium 9.2 Total Bilirubin 0.6 AST 17 ALT 12 Alkaline Phosphatase 78 Total Protein 7.6 Albumin 4.3 Globulin 3.3 Albumin/Globulin Ratio 1.3 Lipase 26 - Rads (name of study) CT cervical spine Radiology: Prelim report reviewed (Impression: No acute fracture or dislocation. Degenerative changes.), EMP read indepedently, See rad report PD MEDICAL DECISION MAKING - ED course Complexity details: reviewed old records, reviewed results, re-evaluated patient, considered differential, d/w patient ED course: 35-year-old female with a stiff neck that she has had intermittently over the past 40 years has worsening of her symptoms she has symptoms consistent with polymyalgia rheumatica although this is not the typical presentation of this disease process. She has never had imaging done of her neck and she has never been able to tilt her neck back. Tonight we provided dexamethasone 10 mg orally and 60 mg of Toradol we are doing a CT exam of the neck and we are checking her sedimentation rate. We did find the sedimentation rate was mildly elevated I took additional history from the patient indicating that her symptoms are worse in the morning when she wakes up and somewhat better during the day when she is active. This is consistent with the diagnosis of polymyalgia rheumatica. Tonight we have given her a dose of dexamethasone I am expecting that she may have some improvement by morning and I have indicated to this the patient that this this particular entity is very sensitive to steroid. I will prescribe 20 mg of prednisone daily for 5 days on this patient and I am asking her to follow-up with her doctor within that timeframe for continuation of steroid or not. Departure - Departure Disposition: 01 Home, Self Care Clinical Impression: Polymyalgia rheumatica Condition: Stable Instructions: Understanding Polymyalgia Rheumatica, ED Neck Back Pain General Follow-Up: Swati Ibrahim MD [Primary Care Provider] - Prescriptions: predniSONE [Deltasone] 2 tablet PO DAILY #10 tablet
[2021-03-14 21:21] LABS: BASOPHILS % (AUTO) 0.5 %; EOSINOPHILS # (AUTO) 0.1 10^3/uL (0.0-0.7); EOSINOPHILS % (AUTO) 1.1 %; HGB - HEMOGLOBIN 11.9 g/dL (12.0-16.0); LYMPHOCYTES # (AUTO) 0.7 10^3/uL (1.5-3.5); LYMPHOCYTES % (AUTO) 11.4 %; MEAN CORPUSCULAR HEMOGLOBIN 26.7 pg (27.0-31.0); MEAN CORPUSCULAR HGB CONC 31.3 g/dL (32.0-36.0); MEAN CORPUSCULAR VOLUME 85.4 fL (81.0-99.0); MONOCYTES # (AUTO) 0.6 10^3/uL (0.0-1.0); MONOCYTES % (AUTO) 10.3 %; NEUTROPHILS # (AUTO) 4.7 10^3/uL (1.5-6.6); NEUTROPHILS % (AUTO) 76.4 %; PLT - PLATELET COUNT 264 10^3/uL (130-450); RED BLOOD COUNT 4.45 10^6/uL (4.20-5.40); RED CELL DISTRIBUTION WIDTH 13.8 % (12.0-15.0); WHITE BLOOD COUNT 6.1 x10^3/uL (4.8-10.8)
[2021-03-14 21:35] LABS: ALBUMIN 4.3 g/dL (3.2-5.5); ALBUMIN/GLOBULIN RATIO 1.3 (1.0-2.2); BILIRUBIN,TOTAL 0.6 mg/dL (0.2-1.0); CALCIUM 9.2 mg/dL (8.5-10.3); CREATININE 0.8 mg/dL (0.4-1.0); POTASSIUM 3.4 mmol/L (3.5-5.0); TOTAL PROTEIN 7.6 g/dL (6.7-8.2)
[2021-03-14 22:57] VITALS: BP 124/60
--- NOTE | 2021-03-15 07:42 | CT Report ---
PROCEDURE: CERVICAL SPINE WO INDICATIONS: neck pain TECHNIQUE: Noncontrast 3 mm thick sections acquired from the skull base to the T4 level. Sagittal and coronal r eformats were then constructed. For radiation dose reduction, the following was used: automated exp osure control, adjustment of mA and/or kV according to patient size. COMPARISON: None. FINDINGS: Image quality: Excellent. Bones: No fractures or dislocations. Visualized superior ribs are intact. Degenerative changes are seen, with at least moderate disc space narrowing at C3-C4, C4-C5, C5-6, and C6-C7. Bridging anterior osteophytes are seen, which are worst within the lower cervical spine. Post erior directed endplate osteophytes are seen, which are most prominent at C5-C6. Focal degenerative c hange can also be seen involving the C1-C2 interface anteriorly. No frankly suspicious lytic or blastic lesions are seen. There is a likely bone island seen within th e C7 spinous process, as on series 7 image 50. Soft tissues: Prevertebral soft tissues are normal in thickness. No paravertebral hematomas. No ap ical pneumothoraces. Prominent atherosclerotic calcification can be seen, particularly involving the aortic arch. IMPRESSION: Negative for acute fracture. Advanced degenerative changes are seen, which are most prominent inferiorly. Note: No significant discrepancy from the preliminary report. Reviewed by: Hunter Lozano MD on 03/15/2021 6:41 AM LIZY Approved by: Hunter Lozano MD on 03/15/2021 6:41 AM LIZY Station ID: [id number]
== END 2021-03-14 23:26 | disposition home or self-care (01) ==
LOC: ED 19:41
DX: M35.3 Polymyalgia rheumatica (principal); M43.6 Torticollis; M47.812 Spondylosis without myelopathy or radiculopathy, cervical region; I10 Essential (primary) hypertension; J44.9 Chronic obstructive pulmonary disease, unspecified
CPT/HCPCS: 36415; 72125; 80053; 83690; 85025; 85651; 96372; 99284; A9270

== ENCOUNTER 2022-01-01 08:00 | Outpatient (CLI) | payer MEDICARE, OTHER ==
[2022-01-01 17:26] LABS: BASOPHILS % (AUTO) 1.5 %; EOSINOPHILS % (AUTO) 3.8 %; HCT - HEMATOCRIT 35.8 % (37.0-47.0); HGB - HEMOGLOBIN 11.3 g/dL (12.0-16.0); LYMPHOCYTES % (AUTO) 25.8 %; MEAN CORPUSCULAR HEMOGLOBIN 26.6 pg (27.0-31.0); MEAN CORPUSCULAR HGB CONC 31.6 g/dL (32.0-36.0); MEAN CORPUSCULAR VOLUME 84.2 fL (81.0-99.0); MEAN PLATELET VOLUME 10.3 fL (7.9-10.8); MONOCYTES % (AUTO) 8.7 %; NEUTROPHILS % (AUTO) 59.8 %; PLT - PLATELET COUNT 281 10^3/uL (130-450); RED BLOOD COUNT 4.25 10^6/uL (4.20-5.40); RED CELL DISTRIBUTION WIDTH 14.3 % (12.0-15.0); WHITE BLOOD COUNT 2.6 x10^3/uL (4.8-10.8)
[2022-01-01 17:31] LABS: ABNORMAL LYMPHS % (MANUAL) 0 %
[2022-01-01 17:42] LABS: % IRON SATURATION 7 % (20-50); ALBUMIN 4.3 g/dL (3.2-5.5); ALBUMIN/GLOBULIN RATIO 1.5 (1.0-2.2); ALKALINE PHOSPHATASE 52 IU/L (42-121); ALT ALANINE AMINOTRANSFERASE 16 IU/L (10-60); AST ASPARTATE AMINOTRANSFERASE 21 IU/L (10-42); BILIRUBIN,TOTAL 0.4 mg/dL (0.2-1.0); BUN - BLOOD UREA NITROGEN 30 mg/dL (6-20); CALCIUM 9.1 mg/dL (8.5-10.3); CARBON DIOXIDE - CO2 27 mmol/L (21-32); CHLORIDE 101 mmol/L (101-111); CHOL/HDL RATIO 2.2 (<4.4); CHOLESTEROL 229 mg/dL; CREATININE 0.7 mg/dL (0.4-1.0); GFR - MDRD 81 (>89); GLUCOSE 93 mg/dL (70-100); HDL CHOLESTEROL 105 mg/dL; IRON 36 ug/dL (28-170); LDL CHOLESTEROL,CALCULATED 113 mg/dL; LDL/HDL RATIO 1.1 (<4.4); POTASSIUM 3.6 mmol/L (3.5-5.0); SODIUM 137 mmol/L (135-145); TOTAL IRON BINDING CAPACITY 521 ug/dL (250-450); TOTAL PROTEIN 7.2 g/dL (6.7-8.2); TRANSFERRIN 372 mg/dL (192-382); TRIGLYCERIDES 55 mg/dL; VLDL CHOLESTEROL 11 mg/dL
[2022-01-01 17:52] LABS: THYROID STIMULATING HORMONE 2.35 uIU/mL (0.34-5.60)
[2022-01-01 17:59] LABS: BAND NEUTROPHILS % (MANUAL) 1 %; EOSINOPHILS # (MANUAL) 0.2 10^3/uL (0-0.7); FERRITIN 8.1 ng/mL (11.0-306.8); LYMPHOCYTES # (MANUAL) 0.7 10^3/uL (1.5-3.5); LYMPHOCYTES % (MANUAL) 19 %; MONOCYTES # (MANUAL) 0.3 10^3/uL (0.0-1.0); NEUTROPHILS # (MANUAL) 1.5 10^3/uL (1.5-6.6); RBC MORPHOLOGY (MULTIPLE) NORMAL APPEARANCE (NORMAL); REACTIVE LYMPHS % (MANUAL) 6 %
[2022-01-01 18:00] LABS: DIFFERENTIAL COMMENT MANUAL DIFFERENTIAL; PLATELET ESTIMATE, MANUAL NORMAL (130-450,000) (NORMAL); PLATELET MORPHOLOGY NORMAL APPEARANCE (NORMAL)
[2022-01-01 20:40] LABS: ESTIMATED AVERAGE GLUCOSE 114 mg/dL (70-100); HEMOGLOBIN A1c% 5.6 % (4.27-6.07)
== END 2022-01-01 08:01 | disposition home or self-care (01) ==
LOC: LAB.R 08:00
PROVIDERS: ATTEND Internal Medicine
DX: Z00.00 Encounter for general adult medical examination without abnormal findings (principal); J44.9 Chronic obstructive pulmonary disease, unspecified; M79.673 Pain in unspecified foot; H40.9 Unspecified glaucoma; H91.90 Unspecified hearing loss, unspecified ear; E61.1 Iron deficiency; I10 Essential (primary) hypertension; R73.01 Impaired fasting glucose; Z86.010 Personal history of colon polyps; M25.569 Pain in unspecified knee; D72.819 Decreased white blood cell count, unspecified; M54.2 Cervicalgia; Z13.6 Encounter for screening for cardiovascular disorders; G47.30 Sleep apnea, unspecified; Z79.899 Other long term (current) drug therapy
CPT/HCPCS: 80053; 80061; 82607; 82728; 83036; 83540; 83721; 84443; 84466; 85025

== ENCOUNTER 2022-02-26 08:04 | Outpatient (CLI) | payer MEDICARE ==
--- NOTE | 2022-03-02 12:06 | XRAY Report ---
PROCEDURE: Foot 3 View BILAT INDICATIONS: Bilateral foot pain. TECHNIQUE: 3 views of the foot were acquired. COMPARISON: None. FINDINGS: Right foot: Bones: No acute fractures or dislocations. A plantar calcaneal spur is present. Mild scattered dege nerative changes for example at the first MTP joint and scattered IP joints. Soft tissues: No tibiotalar joint effusion. Left foot: Bones: No acute fractures or dislocations. A plantar calcaneal spur is present. Mild scattered dege nerative changes for example at the first MTP joint and scattered IP joints. Soft tissues: No tibiotalar joint effusion. IMPRESSION: 1. No acute osseous abnormality. 2. Mild degenerative changes of each foot. Reviewed by: Sagar Sevilla MD on 02/26/2022 9:23 AM PDT Approved by: Sagar Sevilla MD on 02/26/2022 9:23 AM PDT Station ID: [id number]
== END 2022-02-26 08:05 | disposition home or self-care (01) ==
LOC: DI 08:04
PROVIDERS: ATTEND Podiatrist
DX: M19.072 Primary osteoarthritis, left ankle and foot (principal); M19.071 Primary osteoarthritis, right ankle and foot; M77.32 Calcaneal spur, left foot; M77.31 Calcaneal spur, right foot

== ENCOUNTER 2022-04-01 15:01 | Outpatient (CLI) | payer MEDICARE ==
--- NOTE | 2022-04-02 14:38 | Ultrasound Report ---
PROCEDURE: Duplex Lwr Ext Arterial Bilat INDICATIONS: DISORDER OF ARTERIES AND ARTERIOLES TECHNIQUE: Color and pulse Doppler interrogation was performed of both lower extremity arterial systems, with im age documentation. COMPARISON: None FINDINGS: Right lower extremity: Common femoral artery: 134 cm/sec, with triphasic flow. Deep femoral artery: 101 cm/sec, with triphasic flow. Proximal superficial femoral artery: 100 cm/sec, with triphasic flow. Mid superficial femoral artery: 149 cm/sec, with triphasic flow. Distal superficial femoral artery: 92 cm/sec, with triphasic/biphasic flow. Popliteal artery: 57 cm/sec, with triphasic/biphasic flow. Posterior tibial artery: 63 cm/sec, with biphasic with monophasic distally flow. Anterior tibial artery/dorsalis pedis: 132/129 cm/sec, with triphasic/triphasic flow. Luo-scale imaging description: Mild to moderate diffuse scattered plaque. Left lower extremity: Common femoral artery: 156 cm/sec, with triphasic flow. Deep femoral artery: 69 cm/sec, with triphasic flow. Proximal superficial femoral artery: 85 cm/sec, with triphasic flow. Mid superficial femoral artery: 190 cm/sec, with triphasic flow. Distal superficial femoral artery: 94 cm/sec, with triphasic flow. Popliteal artery: 64 cm/sec, with triphasic/biphasic flow. Posterior tibial artery: 138 cm/sec, with triphasic flow. Anterior tibial artery/dorsalis pedis: 91/70 triphasic/triphasic cm/sec, with flow. 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 Reviewed by: Benita Silverman MD on 04/02/2022 2:36 PM PDT Approved by: Benita Silverman MD on 04/02/2022 2:36 PM PDT Station ID: [id number]
--- NOTE | 2022-04-02 17:10 | Ultrasound Report ---
PROCEDURE: Carotid Doppler Complete INDICATIONS: DISORDER OF ARTERIES AND ARTERIOLES TECHNIQUE: Color and pulse Doppler interrogation was performed of both carotid systems, with image documentation and velocity measurements. COMPARISON: None. FINDINGS: Right side: Brachial blood pressure: 144/60 mm Hg. Common carotid artery peak systolic velocity: 74 cm/sec. Internal carotid artery peak systolic velocity: 76 cm/sec. Internal carotid artery end diastolic velocity: 24 cm/sec. External carotid artery peak systolic velocity: 116 cm/sec. ICA/CCA peak systolic ratio: 1.0 . Luo scale imaging description: Moderate plaque at the bifurcation Percent internal carotid artery stenosis: Less than 50% . Vertebral artery: Flow direction is antegrade. Left side: Brachial blood pressure: 143/63 mm Hg. Common carotid artery peak systolic velocity: 67 cm/sec. Internal carotid artery peak systolic velocity: 73 cm/sec. Internal carotid artery end diastolic velocity: 24 cm/sec. External carotid artery peak systolic velocity: 98 cm/sec. ICA/CCA peak systolic ratio: 1.1 . Luo scale imaging description: Mild to moderate plaque at the bifurcation Percent internal carotid artery stenosis: Less than 50% . Vertebral artery: Flow direction is antegrade. IMPRESSION: Less than 50% stenosis of the internal carotid arteries bilaterally. The estimate of stenosis included in the report of the imaging study was calculated using the NASCET method Reviewed by: Benita Silverman MD on 04/02/2022 5:09 PM PDT Approved by: Benita Silverman MD on 04/02/2022 5:09 PM PDT Station ID: [id number]
== END 2022-04-01 15:02 | disposition home or self-care (01) ==
LOC: DI 15:01
PROVIDERS: ATTEND Internal Medicine
DX: I65.23 Occlusion and stenosis of bilateral carotid arteries (principal); I70.201 Unspecified atherosclerosis of native arteries of extremities, right leg
CPT/HCPCS: 93880; 93925

== ENCOUNTER 2022-11-28 09:39 | Emergency (ER) | payer MEDICARE ==
[2022-11-28 10:29] LABS: BILIRUBIN,URINE NEGATIVE (NEGATIVE); GLUCOSE, URINE (UA) NEGATIVE (NEGATIVE); KETONES,URINE (UA) 40 mg/dL (NEGATIVE); LEUKOCYTE ESTERASE, URINE NEGATIVE (NEGATIVE); NITRITE,URINE NEGATIVE (NEGATIVE); OCCULT BLOOD,URINE NEGATIVE (NEGATIVE); PROTEIN,URINE NEGATIVE (NEGATIVE); UROBILINOGEN,URINE 0.2 (NORMAL) E.U./dL (NORMAL)
[2022-11-28 10:31] LABS: CLARITY,URINE CLEAR (CLEAR)
[2022-11-28 10:33] LABS: BASOPHILS % (AUTO) 0.9 %; HCT - HEMATOCRIT 36.6 % (37.0-47.0); HGB - HEMOGLOBIN 11.7 g/dL (12.0-16.0); LYMPHOCYTES # (AUTO) 0.3 10^3/uL (1.5-3.5); LYMPHOCYTES % (AUTO) 13.4 %; MEAN CORPUSCULAR HEMOGLOBIN 25.9 pg (27.0-31.0); MEAN PLATELET VOLUME 9.2 fL (7.9-10.8); MONOCYTES # (AUTO) 0.2 10^3/uL (0.0-1.0); MONOCYTES % (AUTO) 11.1 %; NEUTROPHILS # (AUTO) 1.6 10^3/uL (1.5-6.6); NEUTROPHILS % (AUTO) 74.1 %; PLT - PLATELET COUNT 234 10^3/uL (130-450); RED BLOOD COUNT 4.52 10^6/uL (4.20-5.40); RED CELL DISTRIBUTION WIDTH 15.3 % (12.0-15.0); WHITE BLOOD COUNT 2.2 x10^3/uL (4.8-10.8)
[2022-11-28 10:41] LABS: SLIDE REVIEW? Indicated
[2022-11-28 10:50] LABS: ALBUMIN 4.4 g/dL (3.2-5.5); ALBUMIN/GLOBULIN RATIO 1.4 (1.0-2.2); BILIRUBIN,TOTAL 0.4 mg/dL (0.2-1.0); CALCIUM 9.1 mg/dL (8.5-10.3); CREATININE 0.7 mg/dL (0.4-1.0); TOTAL PROTEIN 7.5 g/dL (6.7-8.2)
[2022-11-28] MEDS ORDERED: HYDROmorphone 1 MG/ML CARPUJECT IVP STA (10:50)
[2022-11-28] MEDS ORDERED: SODIUM CHLORIDE 0.9% 500 ML IV STA (10:50)
[2022-11-28] MEDS ORDERED: ONDANSETRON 4 MG/2 ML VIAL IVP STA (10:50)
[2022-11-28] MEDS ORDERED: SODIUM CHLORIDE 0.9% 1,000 ML IV STA (10:50)
--- NOTE | 2022-11-28 10:52 | ED Physician Documentation ---
History of Present Illness - Stated complaint Stated Complaint: VOMITTING/RT HIP PX - Chief complaint Chief Complaint: Abd Pain - History obtained from History obtained from: Patient, Family - History of Present Illness Timing: How many days ago (2-3) Pain level max: 7 Pain level now: 5 - Additonal information Additional information: Patient is a 77-year-old female who presents to the emergency department complaining of right-sided flank and back pain that she describes as right hip pain. Patient states that this started 2 to 3 days ago, worse with movement, better with a heating pad. She states that last night she developed nausea and "dry heaves". No diarrhea or constipation. She states she takes medication for high blood pressure. She states that she has had a hysterectomy in the past. No recent illnesses. Has not taken anything for pain. Review of Systems Constitutional: denies: Fever, Chills Nose: denies: Rhinorrhea / runny nose, Congestion Throat: denies: Sore throat Cardiac: denies: Chest pain / pressure, Palpitations Respiratory: denies: Dyspnea, Cough GI: reports: Abdominal Pain (Right-sided/right flank), Nausea, Vomiting. 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: Hysterectomy - Present Medications Home Medications: Ambulatory Orders Medication Instructions Recorded Confirmed Hormones 1 ea PO DAILY 08/07/15 02/08/18 Losartan [Cozaar] 50 mg PO DAILY 01/14/18 02/08/18 Mometasone Furoate [Nasonex] 1 spray NS BID #1 spray.pump 01/14/18 02/08/18 Nitrofurantoin Monohyd/M-Cryst 1 tab PO BID 5 Days capsule 02/08/18 [Macrobid 100 mg Capsule] Phenazopyridine HCl [Pyridium] 200 mg PO TID #6 tablet 02/08/18 predniSONE [Deltasone] 2 tablet PO DAILY #10 tablet 03/14/21 HYDROcod/ACETAM 5/325 [[place] 5/325] 1 - 2 ea PO Q6H PRN #14 tablet 11/28/22 Ondansetron Odt [Zofran] 4 mg TL Q6H PRN #10 tablet 11/28/22 - Allergies Allergies/Adverse Reactions: Allergies Allergy/AdvReac Type Severity Reaction Status Date / Time Sulfa (Sulfonamide Allergy Respiratory Verified 11/28/22 10:00 Antibiotics) - Social History Does the pt smoke?: No Smoking Status: Never smoker Does the pt drink ETOH?: Yes Does the pt have substance abuse?: No - Immunizations Immunizations are current?: Yes - POLST Patient has POLST: No PD ED PE NORMAL - Vitals Vital signs reviewed: Yes - General General: Alert and oriented X 3, No acute distress - HEENT HEENT: PERRL, Moist mucous membranes - Neck Neck: Supple, no meningeal sign - Cardiac Cardiac: RRR, Strong equal pulses - Respiratory Respiratory: No respiratory distress, Clear bilaterally - Abdomen Abdomen: Soft, Non distended, Other (Tender to palpation right lower quadrant. No peritoneal signs.) - Back Back: No CVA TTP, No spinal TTP - Derm Derm: Warm and dry, No rash - Extremities Extremities: Other (Full range of motion of the right hip without pain on passive range of motion. She does have some mild tenderness in the right lower lumbar area, about 4 cm from the spine. No rash) - Neuro Neuro: Alert and oriented X 3 - Psych Psych: Normal mood, Normal affect Results - Vitals Vitals: Vital Signs - 24 hr 11/28/22 11/28/22 11/28/22 09:57 10:29 12:08 Temperature 36.5 C Heart Rate 66 64 64 Respiratory 24 20 15 Rate Blood Pressure 148/63 H O2 Saturation 99 95 93 If not protocol : Oxygen Flow, liters/minute 11/28/22 11/28/22 14:06 15:06 Temperature 36.5 C Heart Rate 65 66 Respiratory 12 12 Rate Blood Pressure 127/58 L 124/60 O2 Saturation 99 98 If not protocol 2 : Oxygen Flow, liters/minute Oxygen O2 Source Nasal cannula - Labs Labs: Laboratory Tests 11/28/22 11/28/22 11/28/22 10:20 10:30 10:30 WBC 2.2 L RBC 4.52 Hgb 11.7 L Hct 36.6 L MCV 81.0 MCH 25.9 L MCHC 32.0 RDW 15.3 H Plt Count 234 MPV 9.2 Neut # (Auto) 1.6 Lymph # (Auto) 0.3 L [place] # (Auto) 0.2 Eos # (Auto) 0.0 Baso # (Auto) 0.0 Absolute Nucleated RBC 0.00 Nucleated RBC % 0.0 Manual Slide Review Indicated Platelet Estimate NORMAL (130-450,000) Platelet Morphology NORMAL APPEARANCE RBC Morph Micro Appear NORMAL APPEARANCE Sodium 132 L Potassium 3.0 L Chloride 96 L Carbon Dioxide 25 Anion Gap 11.0 BUN 10 Creatinine 0.7 Estimated GFR (MDRD) 81 L Glucose 135 H Calcium 9.1 Total Bilirubin 0.4 AST 24 ALT 15 Alkaline Phosphatase 64 Total Protein 7.5 Albumin 4.4 Globulin 3.1 Albumin/Globulin Ratio 1.4 Lipase 31 Urine Color YELLOW Urine Clarity CLEAR Urine pH 7.0 Ur Specific Cres[place] 1.015 Urine Protein NEGATIVE Urine Glucose (UA) NEGATIVE Urine Ketones 40 H Urine Occult Blood NEGATIVE Urine Nitrite NEGATIVE Urine Bilirubin NEGATIVE Urine Urobilinogen 0.2 (NORMAL) Ur Leukocyte Esterase NEGATIVE Ur Microscopic Review NOT INDICATED Urine Culture Comments NOT INDICATED Nasal Adenovirus (PCR) Nasal B. parapertussis DNA (PCR) Nasal Coronavir 229E PCR Nasal Coronavir HKU1 PCR Nasal Coronavir NL63 PCR Nasal Coronavir OC43 PCR Nasal Enterovir/Rhinovir PCR Nasal Influenza B PCR Nasal Influenza A PCR Nasal Parainfluen 1 PCR Nasal Parainfluen 2 PCR Nasal Parainfluen 3 PCR Nasal Parainfluen 4 PCR Nasal RSV (PCR) Nasal B.pertussis DNA PCR Nasal C.pneumoniae (PCR) [place] Human Metapneumo PCR Nasal M.pneumoniae (PCR) Nasal SARS-CoV-2 (PCR) 11/28/22 12:05 WBC RBC Hgb Hct MCV MCH MCHC RDW Plt Count MPV Neut # (Auto) Lymph # (Auto) [place] # (Auto) Eos # (Auto) Baso # (Auto) Absolute Nucleated RBC Nucleated RBC % Manual Slide Review Platelet Estimate Platelet Morphology RBC Morph Micro Appear Sodium Potassium Chloride Carbon Dioxide Anion Gap BUN Creatinine Estimated GFR (MDRD) Glucose Calcium Total Bilirubin AST ALT Alkaline Phosphatase Total Protein Albumin Globulin Albumin/Globulin Ratio Lipase Urine Color Urine Clarity Urine pH Ur Specific Crescent Urine Protein Urine Glucose (UA) Urine Ketones Urine Occult Blood Urine Nitrite Urine Bilirubin Urine Urobilinogen Ur Leukocyte Esterase Ur Microscopic Review Urine Culture Comments Nasal Adenovirus (PCR) NOT DETECTED Nasal B. parapertussis DNA (PCR) NOT DETECTED Nasal Coronavir 229E PCR NOT DETECTED Nasal Coronavir HKU1 PCR NOT DETECTED Nasal Coronavir NL63 PCR NOT DETECTED Nasal Coronavir OC43 PCR NOT DETECTED Nasal Enterovir/Rhinovir PCR NOT DETECTED Nasal Influenza B PCR NOT DETECTED Nasal Influenza A PCR NOT DETECTED Nasal Parainfluen 1 PCR NOT DETECTED Nasal Parainfluen 2 PCR NOT DETECTED Nasal Parainfluen 3 PCR NOT DETECTED Nasal Parainfluen 4 PCR NOT DETECTED Nasal RSV (PCR) NOT DETECTED Nasal B.pertussis DNA PCR NOT DETECTED Nasal C.pneumoniae (PCR) NOT DETECTED [place] Human Metapneumo PCR NOT DETECTED Nasal M.pneumoniae (PCR) NOT DETECTED Nasal SARS-CoV-2 (PCR) DETECTED A - Rads (name of study) ct abd/pelvis Relevant Findings:: Final report received, See rad report PD Medical Decision Making - ED course Complexity details: reviewed results, re-evaluated patient, considered differential, d/w patient ED course: Patient is a 77-year-old female who presents to the emergency department with nausea, vomiting and she keeps stating right hip pain but points to her right lower back. Her CT scan does not show any significant abnormalities. Her laboratory testing reveals a positive COVID test. She has a mild leukopenia and mild anemia. Her sodium is mildly low, potassium is mildly low. Urinalysis consistent with dehydration and ketones. No hypoxia or respiratory distress. She did have a small amount of hypoxia after the pain medication but this resolved quickly. Tolerating p.o. without difficulty after IV Toradol, IV Dilaudid and IV Zofran and Phenergan. The patient is interested in taking antivirals for COVID. We will start her on molnupiravir due to Paxlovid interactions with her other medications. We will prescribe pain medication and nausea medication for home. Patient is ambulating without difficulty and tolerating p.o. without difficulty. Patient counseled regarding signs and symptoms for which I believe and urgent re-evaluation would be necessary. Patient with good understanding of and agreement to plan and is comfortable going home at this time This document was made in part using voice recognition software. While efforts are made to proofread this document, sound alike and grammatical errors may occur. Departure - Departure Disposition: 01 Home, Self Care Clinical Impression: COVID-19 Vomiting Qualifiers: Vomiting type: unspecified Nausea presence: with nausea Qualified Code(s): R11.2 - Nausea with vomiting, unspecified Low back pain Qualifiers: Chronicity: acute Back pain laterality: right Sciatica presence: without sciatica Qualified Code(s): M54.50 - Low back pain, unspecified Condition: Good Instructions: ED Viral Syndrome, ED Nausea Vomiting Follow-Up: Swati Ibrahim MD [Primary Care Provider] - Within 1 week Prescriptions: HYDROcod/ACETAM 5/325 [[place] 5/325] 1 - 2 ea PO Q6H PRN #14 tablet PRN Reason: Pain Ondansetron Odt [Zofran] 4 mg TL Q6H PRN #10 tablet PRN Reason: Nausea / Vomiting Comments: Your prescriptions were sent to [facility] in [place]. Use the medication as needed. Take the molnupiravir as prescribed. Please follow-up with your doctor for further care. Please return if you worsen. Discharge Date/Time: 11/28/22 15:06
[2022-11-28] MEDS ORDERED: iohexoL-300 100 ML VIAL ONE (10:54)
[2022-11-28 10:58] LABS: PLATELET ESTIMATE, MANUAL NORMAL (130-450,000) (NORMAL); PLATELET MORPHOLOGY NORMAL APPEARANCE (NORMAL); RBC MORPHOLOGY (MULTIPLE) NORMAL APPEARANCE (NORMAL)
[2022-11-28] MEDS ORDERED: iohexoL-300 100 ML VIAL IVP ONE (11:27)
--- NOTE | 2022-11-28 11:29 | CT Report ---
PROCEDURE: ABDOMEN/PELVIS W INDICATIONS: R sided abd pain CONTRAST: 100ml omni 300 TECHNIQUE: After the administration of IV contrast, 5 mm thick sections acquired from the diaphragms to the symp hysis. 5 mm thick coronal and sagittal reformats were acquired. For radiation dose reduction, the f ollowing was used: automated exposure control, adjustment of mA and/or kV according to patient size. COMPARISON: CT dated 12/25/2019 FINDINGS: Image quality: Excellent. ABDOMEN: Lung bases: Lung bases are clear. Heart size is normal. Calcification of the coronary vasculature. Solid organs: Liver and spleen are normal in size and enhancement. Gallbladder is within normal arriaga its Biliary system is non dilated. Pancreas enhances normally. No adrenal nodules. Kidneys demons trate normal size and enhancement, without hydronephrosis. Peritoneum and bowel: Bowel loops demonstrate normal wall thickness and caliber. No free fluid or a ir. Appendix not seen. No evidence of appendicitis. Nodes and vessels: No retroperitoneal or mesenteric adenopathy by size criteria. Aorta and inferior vena cava are normal in size. Miscellaneous: No ventral hernias. PELVIS: Genitourinary: Bladder wall thickness is normal. Miscellaneous: No inguinal hernias or adenopathy. Bones: No suspicious bony lesions. No vertebral body compression fractures. IMPRESSION: 1. No acute process. 2. Appendix not seen. No evidence of appendicitis. 3. Coronary artery disease. Reviewed by: Julio Honeycutt MD on 11/28/2022 11:28 AM PDT Approved by: Julio Honeycutt MD on 11/28/2022 11:28 AM PDT Station ID: [id number]
[2022-11-28] MEDS ORDERED: PROMETHAZINE INJ 25 MG in SODIUM CHLORIDE 0.9% 50 ML IV STA (11:56)
[2022-11-28] MEDS ORDERED: KETOROLAC 30 MG/ML VIAL IVP STA (12:01)
[2022-11-28] MEDS ORDERED: MORPHINE 2 MG/ML CARPUJECT IVP STA (12:01)
[2022-11-28 13:03] LABS: B. PARAPERTUSSIS- RESP PCR PAN NOT DETECTED; B. PERTUSSIS- RESP PCR PANEL NOT DETECTED; C. PNEUMONIAE- RESP PCR PANEL NOT DETECTED; CORONAVIRUS 229E-RESP PCR NOT DETECTED; CORONAVIRUS HKU1-RESP PCR NOT DETECTED; CORONAVIRUS NL63-RESP PCR NOT DETECTED; CORONAVIRUS OC43-RESP PCR NOT DETECTED; HUMAN METAPNEUMOVIRUS NOT DETECTED; INFLUENZA A- RESP PCR PANEL NOT DETECTED; INFLUENZA B - RESP PCR PANEL NOT DETECTED; M. PNEUMONIAE- RESP PCR PANEL NOT DETECTED; PARAINFLUENZA VIRUS 1 NOT DETECTED; PARAINFLUENZA VIRUS 2 NOT DETECTED; PARAINFLUENZA VIRUS 3 NOT DETECTED; PARAINFLUENZA VIRUS 4 NOT DETECTED; RHINOVIRUS/ENTEROVIRUS NOT DETECTED; RSV- RESP PCR PANEL NOT DETECTED
[2022-11-28 13:05] LABS: SARS-CoV-2 -RESP PCR PANEL DETECTED
[2022-11-28] MEDS ORDERED: MOLNUPIRAVIR PREPACK PO STA (14:52)
[2022-11-28 15:07] VITALS: BP 124/60
== END 2022-11-28 15:06 | disposition home or self-care (01) ==
LOC: ED 09:39
DX: U07.1 COVID-19 (principal); R11.2 Nausea with vomiting, unspecified; M54.50 Low back pain, unspecified; I10 Essential (primary) hypertension; J44.9 Chronic obstructive pulmonary disease, unspecified; Z79.899 Other long term (current) drug therapy
CPT/HCPCS: 36415; 74177; 80053; 81003; 83690; 85025; 87633; 96361; 96365; 96375; 99284; 99285; J1170; J3490; J7040; Q9967; 81001; 87086

== ENCOUNTER 2023-06-29 07:01 | Emergency (ER) | payer OTHER, MEDICARE ==
--- NOTE | 2023-06-29 07:32 | ED Physician Documentation ---
PD HPI UPPER EXT INJURY - Stated complaint Stated Complaint: RT ARM INJ - Chief complaint Chief Complaint: Trauma Ext - History obtained from History obtained from: Patient - History of Present Illness Location: Right, Shoulder Type of injury: Twist Where injury occurred: Work (works at [employer] across [address] from hospital.) Timing - onset: How many hours ago (1) Timing - duration: Hours (1) Timing - details: Abrupt onset, Still present Worsened by: Moving, Palpating (anterior shoulder) Associated symptoms: Weakness (feels weaker for general ROM of the shoulder, she feels due to pain.). No: Numbness Similar symptoms before: No diagnosis (has had some pains in area with repetitive lifting at work previously but brief and improves. 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 : None HEENT: Glaucoma Psych: Anxiety, Claustrophobia Musculoskeletal: Chronic back pain Derm: None - Past Surgical History Past Surgical History: Yes General: Other /COMMERCIAL 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: Hysterectomy - Present Medications Home Medications: Ambulatory Orders Medication Instructions Recorded Confirmed Hormones 1 ea PO DAILY 08/07/15 06/29/23 Losartan [Cozaar] 50 mg PO DAILY 01/14/18 06/29/23 Amlodipine Besylate [Norvasc] 10 mg PO DAILY 06/29/23 06/29/23 Irbesartan [Avapro] 300 mg PO DAILY 06/29/23 06/29/23 Timolol 0.5% Ophth Drops [Timoptic 1 drops OPTH DAILY 06/29/23 06/29/23 0.5% Ophth Drops] Triamterene/Hydrochlorothiazid 1 each PO DAILY 06/29/23 06/29/23 [Triamterene-Hctz 37.5-25 mg Cp] - Allergies Allergies/Adverse Reactions: Allergies Allergy/AdvReac Type Severity Reaction Status Date / Time Sulfa (Sulfonamide Allergy Respiratory Verified 06/29/23 07:16 Antibiotics) - Social History Does the pt smoke?: No Smoking Status: Former smoker Does the pt drink ETOH?: Yes Does the pt have substance abuse?: No - Immunizations Immunizations are current?: Yes - POLST Patient has POLST: No PD ED PE NORMAL - Vitals Vital signs reviewed: Yes - General General: Alert and oriented X 3, Well developed/nourished - Neck Neck: Supple, no meningeal sign, No bony TTP - Derm Derm: Normal color, Warm and dry, No rash - Extremities Extremities: Other (right shoulder tender anteriorly. Pain provoked most with flexion of the arm. No pain at triceps with extension. ROtational movements not as painful. With flexion at elbow, I can feel the biceps heads at shoulder. I do not feel they are ruptured. ) - Neuro Neuro: Alert and oriented X 3, No motor deficit, No sensory deficit Results - Vitals Vitals: Oxygen O2 Source Room air - Rads (name of study) right shoulder xray Relevant Findings:: Prelim report reviewed, EMP independent interpretation of test (no fractures nor dislocations. ) PD Medical Decision Making - ED course Complexity details: reviewed results (shoulder xray is normal), considered differential (onset while lifting a tray of chicken and broth up and to side. Onset pain anterior shoulder, hurting with ROM. ), d/w patient Reviewed Lab Results: the area of pain and provocations along with exam most consisten with biceps strain, perhaps partial tear given the abruptness. Does not feel fully ruptured. Does not seem rotator cuff. Treat with sling and NSAIDs and ortho re-eval in week or so. She has seen Dr. Haddad in [place] in the past. Can go there, or ortho here at [facility] Departure - Departure Disposition: 01 Home, Self Care Clinical Impression: Biceps strain Condition: Stable Record reviewed to determine appropriate education?: Yes Instructions: ED Sprain Shoulder Follow-Up: Swati Ibrahim MD [Primary Care Provider] - Jaqueline Haddad MD [Physician No Access] - [facility] [Provider Group] Comments: Use the sling much of the time to support the shoulder and reduce motion. You will want to do gentle range of motion of the shoulder a few times daily to redu ce stiffness. No use of the shoulder per se for initially [address] Haddad's or the would be orthopedic office later today for follow-up appointment hopefully early next week or so to reevaluate how your shoulder is doing. At this point it sounds to be more likely a biceps muscle strain. It does not sound as much rotator cuff but it is more difficult to tell when its initially hurting. The sling would be a common treatment for all of these. I would also suggest some ice or cool towels to the shoulder today to help reduce any inflammation. Anti-inflammatory such as ibuprofen or naproxen 2-3 [id number] tablets twice daily for the next several days to a week. Tylenol 500 to 650 mg 4 times daily for pain. No lifting, push pull, overhead reaching with the arm and shoulder for now. Forms: PCP List, Activity restrictions Discharge Date/Time: 06/29/23 08:33
[2023-06-29] MEDS ORDERED: IBUPROFEN 600 MG TABLET PO STA (08:03)
[2023-06-29] MEDS ORDERED: ACETAMINOPHEN 325 MG TABLET PO STA (08:03)
[2023-06-29 08:38] VITALS: BP 153/65; O2SAT 100
--- NOTE | 2023-06-29 09:15 | XRAY Report ---
PROCEDURE: Shoulder 3 View RT INDICATIONS: injury TECHNIQUE: 4 views of the shoulder were acquired. COMPARISON: None. FINDINGS: Bones: No fractures or dislocations. No suspicious bony lesions. At least moderate AC joint hypertr ophy. Possible minimal glenohumeral joint degenerative changes. Soft tissues: No suspicious soft tissue calcifications. IMPRESSION: No acute bony abnormality. If pain persists with conservative management, consider repeat radiographs in 10-14 days or cross-sectional imaging. Reviewed by: Sagar Sevilla MD on 06/29/2023 9:13 AM PDT Approved by: Sagar Sevilla MD on 06/29/2023 9:13 AM PDT Station ID: [id number]
== END 2023-06-29 08:33 | disposition home or self-care (01) ==
LOC: ED 07:01
DX: S46.211A Strain of muscle, fascia and tendon of other parts of biceps, right arm, initial encounter (principal); X58.XXXA Exposure to other specified factors, initial encounter; Y99.0 Civilian activity done for income or pay; I10 Essential (primary) hypertension; Z87.891 Personal history of nicotine dependence
CPT/HCPCS: 1040M; 73030; A9270; 99283

== ENCOUNTER 2023-07-12 14:55 | Outpatient (CLI) | payer MEDICARE ==
--- NOTE | 2023-07-12 16:04 | Sleep Patient Instructions ---
Sleep Center Visit Summary - Patient Visit Information Reason for Visit: Initial consult for evaluation of sleep disordered breathing and other sleep issues. - Patient Instructions Instructions Attached: Sleep Study Additional Instructions: You will be completing a sleep study, either an in-lab polysomnography (PSG) or home sleep study (HST). You will follow-up in the sleep care office after the sleep study is completed to hear the results and talk about therapy, if needed. You will be called by our office staff to schedule this appointment, but you may contact us with any questions. - Clinic Information Contact: [facility] [address] [place] [address] [email or web address] T: [phone]
--- NOTE | 2023-07-12 16:08 | SLEEP CARE CONSULTATION ---
Information from patient questionnaire entered by Girma Grant. I have reviewed and concur with the information entered by Girma Grant. This document represents the service I personally performed and the decisions made by me, Tamera Self ARNP. History of Present Illness Service Date and Time: 07/12/2023 1455 Reason for Visit: New patient Chief Complaint: reports: Excessive daytime sleepiness, Fatigue, Frequent awakenings at night Date of Onset: YRS Usual bedtime: 8-10PM Time it takes to fall asleep: QUICKLY BUT AWAKE FOR BATHROOM 30MIN Snores at night: No (sleeps alone) Number of times waking at night: 2 Reasons for waking at night: reports: Bathroom, Other (UNKNOWN). denies: Choking, Gasping for air Toss, Turn, or Twitch while sleeping: No Recalls having dreams: No Usually gets out of bed at: 330-7AM Feels refreshed in the morning: Yes (most of the time) Morning headache: No Sleepy or fatigued during the day: Yes Ever fallen asleep while driving: No Takes day naps: Yes (daily, 45 minutes average) Dreams during day naps: No Prior sleep studies: Yes ([facility]) Additional HPI information: I had the pleasure of seeing DOMONIQUE SCHAFFER today regarding the possibility of her having a sleep disorder. Her current complaints are excessive daytime sleepiness, fatigue and frequent night awakenings. She used to be on a CPAP but has not been using one for last 10-11 years. She had bariatric surgery and lost a lot of weight. She retested and did not need the CPAP. She has continued to need oxygen at night. She was recently hospitalized and each time she fell asleep the alarms would go off because her oxygen saturation would drop. She is currently wearing 3 L NC oxygen at night. She says during the day, when awake, her oxygen level is at 92% where it used to be up at 96-97% when she moved here 10 years ago. In the past year, she has been having more daytime sleepiness and fatigue. She needs oxygen when at higher altitudes. - Parasomnia Symptoms Ever been unable to move upon waking from sleep: No Walks in sleep: No Talks in sleep: No Ever acted out dreams in sleep: No Ever felt weak in the knees when startled or emotional: No Bothered by creepy, crawly, restless sensations in legs: No Problems with memory or concentration: Yes Subjective Initial Golden Sleepiness Scale score: 2 Past Medical History Past Medical History: reports: Hypertension, Claustrophobia, Arthritis, Anxiety, Other (low iron; [facility] bariatric surgery 2010) Social History The patient's occupation is a [employer]. Patient is and lives in . Have you smoked in the past 12 months: No Cigarettes per day (20/pack): 20 Years of smokin Quit date: 1986 Smoking Pack Years: 20.0 Alcohol use: Yes Alcohol amount and frequency: 1 GLASS 1/5 EVERY FEW MONTHS Caffeine use: Yes Caffeine amount and frequency: 3 X DAY Family History Family history of sleep disordered breathing: No (UNKNOWN) Allergies and Home Medications Known drug allergies: Yes (sulfa) Drug allergies reviewed: Yes Home medication list reviewed: Yes Allergy and home medication list: Allergies Sulfa (Sulfonamide Antibiotics) Allergy (Verified 07/08/23 09:34) Respiratory Home Medications Medication Instructions Recorded Confirmed Last Taken Type Hormones 1 ea PO DAILY 08/07/15 07/12/23 08/07/15 History Losartan [Cozaar] 50 mg PO DAILY 01/14/18 07/12/23 Unknown History Amlodipine Besylate [Norvasc] 10 mg PO DAILY 06/29/23 07/12/23 Unknown History Irbesartan [Avapro] 300 mg PO DAILY 06/29/23 07/12/23 Unknown History Timolol 0.5% Ophth Drops [Timoptic 1 drops OPTH DAILY 06/29/23 07/12/23 Unknown History 0.5% Ophth Drops] Triamterene/Hydrochlorothiazid 1 each PO DAILY 06/29/23 07/12/23 Unknown History [Triamterene-Hctz 37.5-25 mg Cp] Review of Systems Weight gain over past 5 years: 10 in last year Cardiovascular: reports: high blood pressure, palpitations Respiratory: reports: shortness of breath Urinary: reports: incontinence Neurological: reports: headaches Psychiatric: reports: anxiety, mood disorder, claustrophobia Ear/Nose/Throat: reports: tonsillectomy, wisdom teeth removed Endocrine: reports: too hot or cold Musculoskeletal: reports: joint pain, neck pain, back pain, muscle pain or cramping, mobility problems Immunologic: reports: sneezing, rash, itching Physical Exam Vital signs obtained and entered by: GIRMA Mckeon MA Blood Pressure: 177/86 (LEFT) Cuff size: wrist Heart Rate: 63 O2 Saturation: 92 Height: 5 ft 3 in Weight: 144 lb Body Mass Index: 25.4 BMI Classification: Overweight Neck circumference: 13.5 Mouth and throat: narrow oropharynx Soft palate: long Hard palate: normal Uvula: normal Uvula visualization: 25% Mallampati Class III Tongue: normal in size Tonsils: absent bilaterally Neck: normal w/o lymphadenopathy or thyromegaly Heart: regular rate and rhythm Lungs: clear bilaterally Impression and Plan 1. Suspected Obstructive Sleep Apnea-Hypopnea Syndrome, as suggested by a history of frequent awakening during the night, cognitive impairment, and excessive daytime sleepiness. She was previously diagnosed with sleep apnea but then tested negative with need for nocturnal oxygen. I recommend proceeding to polysomnography to confirm the diagnosis and to assess severity. If the patient has significant sleep disordered breathing, a manual CPAP titration study will also be performed to find the optimal treatment pressure. I informed the patient of what the sleep studies involve and after some discussion, obtained agreement to proceed. The pathophysiology of obstructive sleep apnea-hypopnea syndrome was discussed with the patient and health risks of cardiovascular and cerebrovascular disease if not treated. Risks of drowsy driving discussed in detail and patient advised to avoid long distance driving and to requisition approver at the first sign of drowsiness. Patient agreed to plan. * Schedule polysomnography. * Avoid long distance driving or driving when feeling sleepy. * Avoid alcohol, sedative and muscle relaxant around bedtime. * Attempt to lose weight. * Review instructions provided by trained office staff on how to prepare for the sleep study. * Return for follow-up after sleep study completed. Plan: PSG Visit Type: In Office Time Spent with Patient (minutes): 29 Provider Statement: I spent 100% of the Face to Face Visit with the patient with greater than 50% spent counseling the patient and coordination of care.
[2023-07-12 16:10] VITALS: BP 177/86; O2SAT 92
== END 2023-07-12 14:56 | disposition home or self-care (01) ==
LOC: SC 14:55
PROVIDERS: ATTEND Nurse Practitioner Family
DX: G47.10 Hypersomnia, unspecified (principal); R53.83 Other fatigue; G47.8 Other sleep disorders; I10 Essential (primary) hypertension; E66.3 Overweight; Z68.25 Body mass index [BMI] 25.0-25.9, adult; Z99.81 Dependence on supplemental oxygen; Z86.69 Personal history of other diseases of the nervous system and sense organs; Z87.891 Personal history of nicotine dependence
CPT/HCPCS: 99203; G0463; 99212

== ENCOUNTER 2023-08-07 20:30 | Outpatient (CLI) | payer MEDICARE | END 2023-08-07 20:31 | disposition home or self-care (01) | LOC: SC 20:30 | PROVIDERS: ATTEND Nurse Practitioner Family | DX: R09.02 Hypoxemia (principal) | CPT/HCPCS: 95810 ==

== ENCOUNTER 2023-08-19 09:37 | Outpatient (CLI) | payer MEDICARE ==
--- NOTE | 2023-08-19 10:44 | Sleep Patient Instructions ---
Sleep Center Visit Summary - Patient Visit Information Reason for Visit: Sleep study followup - Patient Instructions Additional Instructions: Your sleep study today was negative for significant sleep disordered breathing. However, you did have elevated respiratory episodes when sleeping on your back. You should avoid sleeping on your back to control these respiratory episodes. You were found to have episodes of snoring and mild hypoxemia. You should followup with primary doctor for your oxygen needs and issues. Follow-up as needed. - Clinic Information Contact: [facility] [address] [place] [address] [email or web address] T: [phone]
--- NOTE | 2023-08-19 10:46 | SLEEP CARE CONSULTATION ---
Information from patient questionnaire entered by Arin Grant. I have reviewed and concur with the information entered by Arin Grant. This document represents the service I personally performed and the decisions made by , Tamera Self ARNP. History of Present Illness Service Date and Time: 08/19/2023 0937 Initial [place] Sleepiness Scale score: 2 Current [place] Sleepiness Scale score: 4 (08/19/23) Additional HPI information: DOMONIQUE SCHAFFER returns for follow up and results of the recently performed polysomnography. The patient was informed of the following findings: No significant sleep disordered breathing with an average AHI of 3.2 and kerri oxygen saturation of 85%. Supine AHI elevated at 6.4. I explained the pathophysiology behind obstructive sleep apnea. Patient does not have sleep apnea and was advised how weight gain could increase the risk of developing sleep apnea in the future. Patient does not have significant sleep disordered breathing but has elevated AHI in supine position so advised positional therapy. Methods to achieve positional management therapy were discussed; such as, positioning with pillows, wearing a T-shirt with tennis balls sewn into the back or commercially available products. Patient has moderate snoring. Patient counseled not drink alcohol less than 4 hours before bedtime as it can increase snoring and apnea. Patient was cautioned about risks of drowsy driving until sleepiness symptoms resolve. Patient denies drowsy driving. Sleep Study - Results Type of Sleep Study: Polysomnography (COMPLETED 08/07/23) Prior sleep studies: Yes ([facility] [place]) Polysomnography/Home Sleep Study results: IMPRESSION: The quality of the study is good. The patient had reduced sleep efficiency due to frequent awakenings during the night. The sleep architecture was abnormal for sleep fragmentation and reduced amount of time spent in REM and slow wave sleep (N3). Respiratory monitoring showed no significant sleep disordered breathing (AHI = 3.2). There was mild hypoxia despite oxygen therapy at 1 L/minute (mean oxygen saturation of 92% and kerri oxygen saturation of 85%). The few respiratory events occurred almost exclusively during supine REM sleep (supine AHI = 6.4; non-supine = 0.31). Snore was moderate in intensity. There was no significant periodic leg movement of sleep. Cardiac rhythm was normal sinus rhythm without significant arrhythmia. No abnormal behavior (parasomnia) observed during the night. CONCLUSIONS and RECOMMENDATIONS: 1. Hypoxemia ICD R09.02, mild, despite oxygen therapy at 1 L/minute. Recommend slightly higher flow rate. Consider underlying cardiopulmonary disorders. Allergies and Home Medications Known drug allergies: Yes (sulfa) Drug allergies reviewed: Yes Home medication list reviewed: Yes (no changes) Allergy and home medication list: Allergies Sulfa (Sulfonamide Antibiotics) Allergy (Verified 08/18/23 09:44) Respiratory Review of Systems Review of systems same as previous: Yes (NO CHANGE) Physical Exam Vital signs obtained and entered by: ARIN Mckeon MA Blood Pressure: 188/87 (RIGHT ARM) Cuff size: regular Heart Rate: 76 O2 Saturation: 96 Height: 5 ft 3 in Weight: 145 lb Body Mass Index: 25.7 BMI Classification: Overweight Impression and Plan 1. Hypoxemia, mild, with a kerri oxygen saturation of 85% and 34.3 minutes spent under 90%. The baseline oxygen saturation was normal with an average oxygen saturation of 92%. There was mild hypoxemia despite being on 1 L/min oxygen during the study. This may be an indicator of underlying cardiopulmonary issues. She normally uses 3 L oxygen at home. She was advised to followup with primary provider for further evaluation as needed. 2. Snoring but no significant sleep disordered breathing. However, patient had slightly elevated supine AHI at 6.4 and was advised to avoid sleeping supine. An oral appliance can also be used for snoring. This would require a dental consultation. Patient cautioned not to use other online appliances as can cause bite issues. Patient is advised to check if insurance will cover. An ENT consult can also be helpful to determine if any other treatment is an option. * Followup with primary provider for mild hypoxemia * Avoid sleeping supine * Avoid alcohol consumption near bedtime * The patient is cautioned about driving until sleepiness is completely resolved. * Return as needed for follow up. Counseling Topics: Sleeping position Follow up with Sleep Care in: as needed Follow up with: PCP Follow up recommended for: Hypoxia Visit Type: In Office Time Spent with Patient (minutes): 20 Provider Statement: I spent 100% of the Face to Face Visit with the patient with greater than 50% spent counseling the patient and coordination of care.
[2023-08-19 10:53] VITALS: BP 188/87; O2SAT 96
== END 2023-08-19 09:38 | disposition home or self-care (01) ==
LOC: SC 09:37
PROVIDERS: ATTEND Nurse Practitioner Family
DX: R09.02 Hypoxemia (principal); R06.83 Snoring; E66.3 Overweight; Z68.25 Body mass index [BMI] 25.0-25.9, adult
CPT/HCPCS: 99213; G0463; 99212

== ENCOUNTER 2023-08-23 15:04 | Outpatient (CLI) | payer MEDICARE | END 2023-08-23 15:05 | disposition home or self-care (01) | LOC: DI 15:04 | PROVIDERS: ATTEND Internal Medicine | DX: I08.1 Rheumatic disorders of both mitral and tricuspid valves (principal) | CPT/HCPCS: 93306 ==

== ENCOUNTER 2023-11-25 16:37 | Emergency (ER) | payer OTHER, MEDICARE ==
[2023-11-25 16:54] VITALS: BP 160/99; O2SAT 98
--- NOTE | 2023-11-25 16:56 | ED Physician Documentation ---
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 She is right-handed and she performs tasks, sounds like mostly food preparation where she is already on a weight restriction for lifting up to 10 pounds because of problems with her right shoulder. Because of frequent lifting yesterday she developed pain across the top of the left shoulder. There was no specific injury other than repetitive lifting. 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 : None HEENT: Glaucoma Psych: Anxiety, Claustrophobia Musculoskeletal: Chronic back pain Derm: None - Past Surgical History Past Surgical History: Yes General: Other /SCUTCHER TENDER: Hysterectomy - Present Medications Home Medications: Ambulatory Orders Medication Instructions Recorded Confirmed Hormones 1 ea PO DAILY 08/07/15 08/19/23 Losartan [Cozaar] 50 mg PO DAILY 01/14/18 08/19/23 Amlodipine Besylate [Norvasc] 10 mg PO DAILY 06/29/23 08/19/23 Irbesartan [Avapro] 300 mg PO DAILY 06/29/23 08/19/23 Timolol 0.5% Ophth Drops [Timoptic 1 drops OPTH DAILY 06/29/23 08/19/23 0.5% Ophth Drops] Triamterene/Hydrochlorothiazid 1 each PO DAILY 06/29/23 08/19/23 [Triamterene-Hctz 37.5-25 mg Cp] Tizanidine HCl 2 mg PO Q8HR PRN #15 tablet 11/25/23 - Allergies Allergies/Adverse Reactions: Allergies Allergy/AdvReac Type Severity Reaction Status Date / Time Sulfa (Sulfonamide Allergy Respiratory Verified 11/25/23 16:40 Antibiotics) - Social History Does the pt smoke?: No Smoking Status: Never smoker Does the pt drink ETOH?: Yes Does the pt have substance abuse?: No - Immunizations Immunizations are current?: Yes - POLST Patient has POLST: No PD ED PE NORMAL - Vitals Vital signs reviewed: Yes - General General: Alert and oriented X 3, No acute distress - Neck Neck: Supple, no meningeal sign, No bony TTP - Extremities Extremities: Other (Muscular tenderness across the top of the left shoulder. She says it also hurts to deviate her neck to the right. Mild tenderness to the distal clavicle. Can abduct to 90 degrees without pain.) - Neuro Neuro: Alert and oriented X 3, Normal speech - Psych Psych: Normal mood, Normal affect Results - Vitals Vitals: Vital Signs - 24 hr 11/25/23 16:40 Temperature 36.7 C Heart Rate 81 Respiratory 18 Rate Blood Pressure 160/99 H O2 Saturation 98 Oxygen O2 Source Room air - Rads (name of study) Left shoulder x-ray demonstrates moderate degenerative changes at the AC joint. Relevant Findings:: Final report received, EMP independent interpretation of test PD Medical Decision Making - ED course Complexity details: other (L&[id number] completed and submitted) ED course: She presents with new repetitive use pain to the left shoulder. Departure - Departure Disposition: 01 Home, Self Care Clinical Impression: Left shoulder strain Qualifiers: Encounter type: initial encounter Qualified Code(s): S46.912A - Strain of unspecified muscle, fascia and tendon at shoulder and upper arm level, left arm, initial encounter Condition: Good Record reviewed to determine appropriate education?: Yes Instructions: ED Sprain Shoulder Prescriptions: Tizanidine HCl 2 mg PO Q8HR PRN #15 tablet PRN Reason: muscle pain Comments: Your x-ray does not show any acute traumatic findings, but you do have osteoarthritis in the acromioclavicular joint. Current pain seems muscular to me. You can follow-up with your orthopedist regarding this, in the meantime Tylenol as needed for pain and I am also pre scribing a muscle relaxer. Return for new or worsening symptoms. Forms: PCP List, Activity restrictions Discharge Date/Time: 11/25/23 17:24
--- NOTE | 2023-11-25 18:45 | XRAY Report ---
PROCEDURE: Shoulder 2+V LT INDICATIONS: shoulder pain TECHNIQUE: 3 views of the shoulder were acquired. COMPARISON: None. FINDINGS: Bones: No fractures or dislocations. Moderate degenerative changes at the AC joint. No suspicious renetta ny lesions. Visualized ribs appear intact. Soft tissues: No suspicious soft tissue calcifications. The visualized lungs are within normal limi ts. IMPRESSION: Moderate degenerative changes at the left AC joint. Reviewed by: Reid Oden MD on 11/25/2023 6:44 PM PDT Approved by: Reid Oden MD on 11/25/2023 6:44 PM PDT Station ID: [id number]
== END 2023-11-25 17:24 | disposition home or self-care (01) ==
LOC: ED 16:37
DX: S46.912A Strain of unspecified muscle, fascia and tendon at shoulder and upper arm level, left arm, initial encounter (principal); X50.3XXA Overexertion from repetitive movements, initial encounter; Y99.0 Civilian activity done for income or pay; I10 Essential (primary) hypertension; J44.9 Chronic obstructive pulmonary disease, unspecified; G47.30 Sleep apnea, unspecified; Z86.010 Personal history of colon polyps
CPT/HCPCS: 1040M; 99283; 99284

== ENCOUNTER 2024-01-14 08:00 | Outpatient (CLI) | payer MEDICARE | END 2024-01-14 23:59 | disposition home or self-care (01) | LOC: LAB 08:00 | PROVIDERS: ATTEND Emergency Medicine | DX: N10 Acute pyelonephritis (principal) | CPT/HCPCS: 87086; 87181 ==

== ENCOUNTER 2024-02-14 17:04 | Outpatient (CLI) | payer MEDICARE ==
--- NOTE | 2024-02-15 09:46 | XRAY Report ---
PROCEDURE: Chest 2V INDICATIONS: DYSPNEA TECHNIQUE: 2 views of the chest were acquired. COMPARISON: 07/16/2019. FINDINGS: Surgical changes and devices: Surgical clip projects over the epigastric region. Lungs and pleura: Streaky left basilar opacity. Skinfold overlying the right hemithorax. No pneumoth orax. Mediastinum: Mediastinal contours appear normal. Heart size is normal. Bones and chest wall: No suspicious bony lesions. Overlying soft tissues appear unremarkable. IMPRESSION: Streaky left basilar opacity, probably atelectasis. Reviewed by: Mark Burroughs MD on 02/15/2024 9:45 AM PDT Approved by: Mark Burroughs MD on 02/15/2024 9:45 AM PDT Station ID: [id number]
== END 2024-02-14 17:05 | disposition home or self-care (01) ==
LOC: DI 17:04
PROVIDERS: ATTEND Internal Medicine
DX: R91.8 Other nonspecific abnormal finding of lung field (principal); Z82.49 Family history of ischemic heart disease and other diseases of the circulatory system

== ENCOUNTER 2024-03-24 13:05 | Outpatient (CLI) | payer MEDICARE ==
--- NOTE | 2024-03-24 23:44 | XRAY Report ---
PROCEDURE: Chest 2V INDICATIONS: PNA TECHNIQUE: 2 views of the chest were acquired. COMPARISON: 02/14/2024 FINDINGS: Surgical changes and devices: None. Lungs and pleura: No pleural effusions or pneumothorax. Minimal streaky left basilar opacities likel y representing atelectasis. This is less prominent compared to the prior study. No new focal consolid ation.. Mediastinum: Mediastinal contours appear normal. Heart size is normal. Bones and chest wall: No suspicious bony lesions. Overlying soft tissues appear unremarkable. IMPRESSION: Persistent but decreased appearance of mild streaky left basilar opacity favored to represent atelect asis. Otherwise, no acute cardiopulmonary abnormalities. Reviewed by: John Reyez MD on 03/24/2024 11:43 PM PDT Approved by: John Reeyz MD on 03/24/2024 11:43 PM PDT Station ID: [id number]
== END 2024-03-24 13:06 | disposition home or self-care (01) ==
LOC: DI 13:05
PROVIDERS: ATTEND Internal Medicine
DX: J18.9 Pneumonia, unspecified organism (principal)

== ENCOUNTER 2024-04-02 12:22 | Outpatient (CLI) | payer MEDICARE ==
[2024-04-02 12:52] LABS: CREATININE 0.7 mg/dL (0.6-1.3)
[2024-04-02] MEDS ORDERED: iohexoL-300 100 ML VIAL ONE (13:10)
[2024-04-02] MEDS: iohexoL-300 100 ML VIAL IVP ONE (13:33)
--- NOTE | 2024-04-02 15:46 | CT Report ---
PROCEDURE: Chest W INDICATIONS: DYSPNEA CONTRAST: 100ml [id number]. TECHNIQUE: After the administration of intravenous contrast, a CT scan of the chest was performed. Images were recorded and evaluated at appropriate window settings. Reformats: axial MIP of the chest, coronal and sagittal. For radiation dose reduction, the following was used: automated exposure control, adjustme nt of mA and/or kV according to patient size. COMPARISON: CT 06/15/2019. X-ray 03/24/2024, 02/14/2024 FINDINGS: Image quality: Diagnostic. Chest wall and lower neck: No thyroid nodule which requires sonographic follow up. No breast mass. No axillary or supraclavicular adenopathy by size. Lungs and pleura: No consolidation. No pleural effusions. No pneumothorax. 2 mm solid nodule, right upper lobe (series 4, image 22). Juxtapleural nodules with smooth margins, favoring benign intrapulm onary lymph nodes. Left basilar atelectasis. Mediastinum: Heart size is enlarged. No pericardial effusion. No large vessel abnormality. No mediast inal adenopathy by size criteria. Moderate LAD calcifications. Bones: No aggressive osseous abnormality. Upper Abdomen: Hepatic cysts. Gastric bypass. IMPRESSION: 2 mm solid nodule in the right upper lobe, not seen on prior CT. Consider 12 month follow-up if this patient is at high risk for developing lung cancer, per Fleischner Society guidelines. Left basilar atelectasis, probably corresponding to findings on comparison x-ray. Reviewed by: Mark Burroughs MD on 04/02/2024 3:45 PM PDT Approved by: Mark Burroughs MD on 04/02/2024 3:45 PM PDT Station ID: [id number]
== END 2024-04-02 12:23 | disposition home or self-care (01) ==
LOC: LAB 12:22
PROVIDERS: ATTEND Internal Medicine
DX: R06.00 Dyspnea, unspecified (principal); R05.3 Chronic cough; Z79.899 Other long term (current) drug therapy; R92.8 Other abnormal and inconclusive findings on diagnostic imaging of breast; J98.11 Atelectasis
CPT/HCPCS: 36415; 71260; 82565; Q9967

== ENCOUNTER 2024-05-15 13:19 | Outpatient (CLI) | payer MEDICARE ==
[2024-05-15] MEDS: ALBUTEROL 1 PUFF INH STA (14:58)
== END 2024-05-15 13:20 | disposition home or self-care (01) ==
LOC: RT 13:19
PROVIDERS: ATTEND Internal Medicine
DX: J44.9 Chronic obstructive pulmonary disease, unspecified (principal); R06.00 Dyspnea, unspecified
CPT/HCPCS: 94060

== ENCOUNTER 2025-08-06 04:36 | Observation (INO) ==
[2025-08-06] MEDS: SODIUM CHLORIDE 0.9% 1,000 ML IV STA (05:04)
[2025-08-06] MEDS: ONDANSETRON 4 MG/2 ML VIAL IVP STA (05:04)
--- OUTSIDE RECORDS SUMMARY | 2025-08-06 05:15 | EXTERNAL MEDICAL SUMMARY RPT | Continuity of Care Document ---
Author Organization [place] Address [address] [place] [id number] Phone Problems date description facility 2025-05-23 09:10 Encounter for screen ing mammogram for malignant neoplasm of breast [facility] 2025-05-27 07:14 Other abnormal and i nconclusive findings on diagnostic imaging of breast [facility] 2025-06-03 09:47 Other abnormal and i nconclusive findings on diagnostic imaging of breast [facility] 2025-06-03 09:49 Other abnormal and i nconclusive findings on diagnostic imaging of breast [facility] 2025-06-12 09:38 Other abnormal and i nconclusive findings on diagnostic imaging of breast [facility] 2025-06-13 00:01 Other abnormal and i nconclusive findings on diagnostic imaging of breast [facility] 2025-07-31 08:31 Unspecified osteoarthritis, uns pecified site [facility] 2025-07-31 08:31 [facility]25-07-31 08:31 [facility] in left [facility] 2025-07-31 08:32 Unspecified osteoarthritis, uns pecified site [facility] 2025-07-31 08:32 [facility] 2025-07-31 08:32 Pain in left knee [facility] 2025-07-31 10:25 Menopausal and female climacter ic states [facility] 2025-07-31 10:25 Other specified jill pausal and perimenopausal disorders [facility] 2025-07-31 10:25 Hormone replacement therapy [facility] [employer] 2025-08-05 12:41 Menopausal and female climacter ic states [facility] 2025-08-05 12:42 Stress incontinence (female) (m estefani) [facility] 2025-08-05 12:42 Menopausal and female climacter ic states [facility] 2025-08-05 12:42 Other specified jill pausal and perimenopausal disorders [facility] 2025-08-05 12:42 Hormone replacement therapy [facility] 2025-08-05 12:42 Acquired absence of both cervix and uterus [facility] Social History date description facility
[2025-08-06 05:24] LABS: HCT - HEMATOCRIT 36.5 % (37.0-47.0); HGB - HEMOGLOBIN 11.8 g/dL (12.0-16.0); MEAN PLATELET VOLUME 9.3 fL (7.9-10.8); NRBC ABSOLUTE COUNT (AUTO) 0.00 x10^3/uL; NUCLEATED RED BLOOD CELLS AUTO 0.0 /100WBC; PLT - PLATELET COUNT 263 10^3/uL (130-450); RED CELL DISTRIBUTION WIDTH 12.7 % (12.0-15.0)
--- NOTE | 2025-08-06 05:31 | ED Physician Documentation ---
History of Present Illness Stated complaint Stated Complaint: VOMITING Chief complaint Chief Complaint: General History obtained from History obtained from: Patient Additonal information Additional information: The patient comes to the emergency department for chief complaint of bloating, abdominal discomfort, nausea, and vomiting that started sometime overnight. Patient states last thing she ate with soup yesterday evening and she felt a little "off", but did not become nauseated until sometime in the night. She states she has not had any bowel movements or passed any gas since symptoms started. She feels like her abdomen is very distended and she has a pain in her epigastrium. No chest pain. No shortness of breath. She states she just feels very uncomfortable. No other complaints at this time. Meds/Allgy Home Medications Ambulatory Orders Medication Instructions Recorded Confirmed krill 1,000 mg-omega-3 170 mg-dha 1 cap PO QDAY 07/31/25 50 mg-epa 80 or-lkpcgj-fbqwu capsule (krill oil) mecobalamin (vitamin B12) 500 mcg mcg PO QDAY 07/17/24 07/31/25 chewable tablet biyzhapq-dzmfhpdo-vccc 45 mg-folic 2 cap PO QDAY 07/1707/31/25 acid 800 mcg-vit K 120 mcg capsule (Bariatric Multivitamins) amlodipine 10 mg tablet (Norvasc) 10 mg PO QDAY #90 ta bs 09/13/24 07/31/25 irbesartan 300 mg tablet 300 mg PO QDAY #90 tabs 05/3007/31/25 triamterene 37.5 1 cap PO DAILY #90 caps 05/3007/31/25 mg-hydrochlorothiazide 25 mg capsule albuterol sulfate 90 mcg/actuation 1 - 2 inh inhalatio n Q4H PRN 10/29/24 07/31/25 aerosol inhaler (Ventolin HFA) shortness of breath or wheezing #8.5 grams Bacillus coagulans 800 million cell PO 07/31/25 cell tablet baclofen 10 mg tablet 10 mg PO QDAY 07/31/2507/31 calcium 600 mg (as carbonate)-vit tab PO 07/31/2507/07 D3 1,000 unit-vitamin K2 90 mcg tab coenzyme Q10 75 mg capsule (Ultra 75 mg PO QDAY 07/31/25 CoQ10) estradiol 10 mcg vaginal tablet 10 mcg vaginal QDAY 2 weeks #30 07/31/25 07/31/25 (Vagifem) tabs meloxicam 15 mg tablet 15 mg PO QDAY 07/31/2507/31 multivitamin with iron (Daily 1 tab PO QDAY 07/31/25 1 09/30/24 Vitamin with Iron tablet) pantoprazole 40 mg tablet,delayed 40 mg PO QAM 5 07/31/25 release timolol maleate (PF) 0.25 % eye 1 drp ophthalmic (eye) QDAY 07/31/25 07/31/25 drops in a dropperette estradiol 0.025 mg/24 hr weekly 1 patch transdermal QW [place] #12 ea 08/02/25 transdermal patch (Climara) Allergies Allergies Allergy/AdvReac Type Severity Reaction Status Date / Time lisinopril Allergy Cough Verified 08/06/25 04:41 Sulfa (Sulfonamide Allergy Respiratory Verified 08/06/25 04:41 Antibiotics) PFSH Active Problems All Active Problems (Updated 08/06/25 @ 06:55 by Carissa Diego MD) Complete obstruction of small intestine (Acute) MARIA VICTORIA (stress urinary incontinence, female) (Acute) Genitourinary syndrome of menopause (Acute) Menopausal syndrome on hormone replacement therapy (Acute) Osteoarthritis of knees, bilateral (Acute) Bilateral knee effusions (Acute) Strain of knee, bilateral (Acute) Recurrent left knee instability (Acute) Bilateral knee pain (Acute) Acute bilateral knee pain (Acute) Strain of muscle(s) and tendon(s) of the rotator cuff of right shoulder, subsequent encounter (Acute) Hypertension (Acute 06/26/20) Medical History Medical History (Updated 08/06/25 @ 06:55 by Carissa Diego MD) Sinusitis Headache Urinary tract infection Cystitis Uncontrolled hypertension Chest pain Arthralgia (06/26/20) Bilateral primary osteoarthritis of first carpometacarpal joints (04/26/22) COPD (chronic obstructive pulmonary disease) (07/16/15) Heart murmur (06/26/20) Liver cyst (06/26/20) Sleep apnea (06/26/20) Chronic diarrhea Neck pain COPD (chronic obstructive pulmonary disease) Hormone replacement therapy Colon polyps Hearing loss Chest pain (06/26/20) Renal artery stenosis (06/26/20) Pneumonia (06/26/20) Personal history of colonic polyps (07/16/15) Palpitations (06/26/20) Osteoarthritis of left knee (01/12/21) Knee pain, left (01/09/21) Hard of hearing (06/26/20) Surgical History Surgical History H/O total hysterectomy H/O bariatric surgery Family History Family History Father Cancer Mother Cancer Diabetes High blood pressure Social History Social History (Updated 07/31/25 @ 09:01 by Kailey Garza MA) Smoking Status: Former smoker If you are a former smoker, when did you quit? (Date/Year): 1986 Number of Years Smoked: 20 How many cigarettes a day do you smoke? (20 cigarettes=1 Pk): 20 Second hand tobacco smoke exposure: No Do you dip or chew tobacco?: No Do you vape?: No Living arrangement: At home Living Condition: With family Physical Activity: other Level: Independent Do you feel safe in your home environment?: Yes History of physical, verbal, emotional, or financial abuse?: No ETOH Use: Liquor Frequency: Occasional ETOH - Additional Notes: When she drinks it's for 5 days in a row Substance Use: denies use Do you want to become in the next year?: No Are you sexually active?: No POLST Patient has POLST: No Exam Exam Vital Signs: Vital Signs x48h Temp Pulse Resp BP Pulse Ox 08/06/25 04:39 36.9 C 84 24 132/66 H 92 Constitutional normal general appearance The patient appears uncomfortable, tachypneic, hand on her upper abdomen, and face in a grimace. HENMT normocephalic, head/scalp atraumatic, external nose normal and oral mucous membranes normal Eyes EOMs intact bilaterally Neck/C-Spine visual inspection normal and supple Respiratory breath sounds equal bilaterally, normal respiratory effort and clear to auscultation bilaterally Cardiovascular normal heart rate noted, regular rhythm noted and no edema Gastrointestinal abdomen soft to palpation Abdomen moderately distended, diffusely mildly tender but moderately so in the epigastric region, no rebound or guarding. Genitourinary no CVA tenderness Extremities normal to inspection Neurology Alert, grossly intact Psychiatry mental status grossly normal Skin skin color normal Results Vitals Vitals: Vital Signs - 24 hr 08/06/25 04:39 08/06/25 05:40 Temperature 36.9 C Temperature Source Temporal Artery Scan Pulse Rate 84 Respiratory Rate 24 Blood Pressure 132/66 H O2 Saturation 92 O2 Source Room air Pain Intensity 6 8 Oxygen O2 Source Room air Labs Labs: Laboratory Tests 08/06/25 05:19 WBC 11.4 H RBC 4.16 L Hgb 11.8 L Hct 36.5 L MCV 87.7 MCH 28.4 MCHC 32.3 RDW 12.7 Plt Count 263 MPV 9.3 Neut # (Auto) 10.5 H Lymph # (Auto) 0.4 L [place] # (Auto) 0.4 Eos # (Auto) 0.0 Baso # (Auto) 0.0 Absolute Nucleated RBC 0.00 Nucleated RBC % 0.0 Sodium 135 Potassium 3.3 L Chloride 100 L Carbon Dioxide 24 Anion Gap 11.0 BUN 20 Creatinine 0.8 Estimated GFR (MDRD) 69 L Glucose 150 H Calcium 9.4 Total Bilirubin 0.4 AST 15 ALT 10 Alkaline Phosphatase 69 Total Protein 6.3 L Albumin 4.4 Globulin 1.9 L Albumin/Globulin Ratio 2.3 H Lipase 26 PD Medical Decision Making ED course Complexity details: reviewed old records, reviewed results, considered differential and d/w patient ED course: The patient appeared quite uncomfortable upon arrival in the emergency department and I was actually concern for the possibility of bowel obstruction or some other injury at abdominal pathology. She was started on IV fluids and given Zofran, and labs were obtained including CBC and ER abdominal panel. Labs overall were fairly unremarkable except for a slight elevation white blood cell count and CBC. Patient was sent for CT scan of the abdomen and pelvis which did show a small bowel obstruction. I have talked to her about having NG tube put in though her stomach is not terribly distended. However, she still is occasionally gagging and retching and I think her comfort level would probably be improved with NG tube. I spoke with hospitalist on-call Dr. Chen and he has agreed to admit the patient to his service. The patient is agreeable to admission. Discharge Plan Discharge Patient Disposition: 66 [facility] DC/Xfer Condition: Serious Clinical Impression: Complete obstruction of small intestine Prescriptions: No Action amlodipine [Norvasc] 10 mg tablet 10 mg PO QDAY Qty: 90 3RF triamterene-hydrochlorothiazid 37.5-25 mg capsule 1 cap PO DAILY Qty: 90 3RF irbesartan 300 mg tablet 300 mg PO QDAY Qty: 90 3RF estradiol [Climara] 0.025 mg/24 hr patch weekly 1 patch transdermal QWEEK Qty: 12 1RF albuterol sulfate [Ventolin HFA] 90 mcg/actuation HFA aerosol inhaler 1 - 2 inh inhalation Q4H PRN (Reason: shortness of breath or wheezing) Qty: 8.5 0RF dgbzh-zn-7-azt-vwi-rnqubem-ast [krill oil] 1,010-814-93-80 mg capsule 1 cap PO QDAY mecobalamin (vitamin B12) 500 mcg tablet,chewable PO QDAY Bariatric Multivitamins 45 mg iron- 800 mcg-120 mcg capsule 2 cap PO QDAY meloxicam 15 mg tablet 15 mg PO QDAY baclofen 10 mg tablet 10 mg PO QDAY pantoprazole 40 mg tablet,delayed release (DR/EC) 40 mg PO QAM multivitamin with iron [Daily Vitamin with Iron] Tablet 1 tab PO QDAY timolol maleate (PF) 0.25 % dropperette 1 drp ophthalmic (eye) QDAY Ultra CoQ10 75 mg capsule 75 mg PO QDAY calcium carb-vitamin D3-vit K2 600 mg-1,000 unit-90 mcg tablet PO Bacillus coagulans 800 million cell tablet PO estradiol [Vagifem] 10 mcg tablet 10 mcg vaginal QDAY 14 Days Qty: 30 1RF Rx Instructions: Place in the vagina every day for 2 weeks and then twice weekly. Print Language: Malaysian
[2025-08-06 05:37] LABS: ALT ALANINE AMINOTRANSFERASE 10.0 IU/L (10-60); AST ASPARTATE AMINOTRANSFERASE 15.0 IU/L (10-42); BUN - BLOOD UREA NITROGEN 20.0 mg/dL (6-20); CARBON DIOXIDE - CO2 24.0 mmol/L (21-32); CREATININE 0.8 mg/dL (0.6-1.3); GFR - MDRD 69.0 (>89)
[2025-08-06] MEDS: HYDROmorphone 0.5 MG/0.5 ML SYRINGE IVP STA (05:40)
--- NOTE | 2025-08-06 07:29 | CT Report ---
PROCEDURE: CT Abdomen/Pelvis W INDICATIONS: gen abd pn, bloating, vomiting, no gas/bm CONTRAST: 100cc [id number] TECHNIQUE: After the administration of intravenous contrast, a CT scan of the abdomen and pelvis was performed. Images were recorded and evaluated at appropriate window settings. Reformats: coronal and sagittal. For radiation dose reduction, the following was used: automated exposure control, adjustment of mA and/or kV according to patient size. COMPARISON: 11/28/2022 FINDINGS: Image quality: Diagnostic. Lower chest: Unremarkable. Liver: No solid mass. Gallbladder: No radiopaque stones or wall thickening. Biliary tree: No intrahepatic or extrahepatic dilation, accounting for age. Spleen: No splenomegaly. Pancreas: No pancreatic ductal dilation. Adrenals: No adrenal nodule. Kidneys and ureters: No hydronephrosis. No renal cystic lesion which requires follow up. No solid mass. Stomach, bowel and peritoneum: Remote gastric bypass. There is a small bowel obstruction present, with this transition point noted in the left pelvis, involving a loop sitting on the bladder. There is fecalization of bowel contents at the level of the obstruction. Reference coronal image 54 of series 4. That loop of obstructed bowel measures 3.2 cm. Small bowel loops measure up to 4.1 cm. No pathologic free fluid. Lymph nodes: No central or retroperitoneal adenopathy. Vessels: No infrarenal aortic aneurysm. Patent portal vein. PELVIS Reproductive organs: Uterus is surgically absent. No adnexal masses. Bladder: No abnormal wall thickening. Pelvic lymph nodes: No pelvic adenopathy by size criteria. Bones: No aggressive osseous abnormality. Lumbar degenerative change Other: No significant ventral or inguinal hernia. IMPRESSION: Small bowel obstruction with transition point involving a loop of small bowel immediately cephalad to the bladder. Remote gastric bypass and hysterectomy. Findings are concordant with preliminary interpretation provided by [facility]. Reviewed by: Néstor Fleming MD on 08/06/2025 7:26 AM PST Approved by: Néstor Fleming MD on 08/06/2025 7:26 AM PST Station ID: [id number]
[2025-08-06] MEDS: HYDROmorphone 0.5 MG/0.5 ML SYRINGE IVP ONE (07:53)
[2025-08-06] MEDS ORDERED: ONDANSETRON ODT 4 MG TABLET TL PRN (08:35)
[2025-08-06] MEDS ORDERED: SODIUM CHLORIDE FLUSH 0.9% 10 ML SYRINGE IVP PRN (08:35)
--- NOTE | 2025-08-06 08:40 | XRAY Report ---
PROCEDURE: XR Chest for Line Placement INDICATIONS: NG tube placement TECHNIQUE: One view of the chest was acquired. COMPARISON: None. FINDINGS: Nasogastric tube terminates at the expected location of the gastroesophageal junction with the sideport at the level of the distal esophagus could be advanced up to approximately 9 cm. Low lung volumes with mild bibasilar subsegmental atelectasis some of which may be related to expiratory result. Moderate calcifications of the aortic arch and tortuous descending aorta. Degenerative changes of the thoracic spine. No pneumothorax, no pleural effusion, no lobar consolidation. Cardiopericardial silhouette and pulmonary vasculature within normal limits. IMPRESSION: Nasogastric tube terminates at the gastroesophageal junction could be advanced as discussed above. Other findings as above. Reviewed by: Oleg Martinez MD on 08/06/2025 8:37 AM [facility] Approved by: Oleg Martinez MD on 08/06/2025 8:37 AM [facility] Station ID: [id number]
[2025-08-06] MEDS: HYDROmorphone 0.5 MG/0.5 ML SYRINGE IVP PRN (09:00)
[2025-08-06] MEDS: SODIUM CHLORIDE FLUSH 0.9% 10 ML SYRINGE IVP SCH (09:00)
[2025-08-06] MEDS: ONDANSETRON 4 MG/2 ML VIAL IVP PRN (09:01)
--- NOTE | 2025-08-06 09:54 | HISTORY & PHYSICAL EXAMINATION ---
Chief Complaint Chief Complaint Chief Complaint: Nausea and vomitting History of Present Illness Admitted From Admitted From:: ED History Obtained From Records Reviewed: [facility] History obtained from: Patient, Daughter, EMR History of Present Illness HPI Comment/Other: Tammy is an 80-year-old female who with a past medical history of OA, JOSH, COPD, hypertension, and GERD with an undifferentiated diarrheal disorder that has been going on for several months who presents with acute onset nausea and vomiting. She is found to have a small bowel obstruction. She has remote history of gastric bypass and a hysterectomy. Tammy reports that she does not currently have a primary care doctor. In the last year, she has previously seen [facility], outpatient specialists with Dr. Guo (GI) and Dr. Larsen (pulmonology). She reports no clear explanation for her diarrheal disorder. Reports that she has soft and loose stools that are unpredictable frequently. Her last bowel movement may have been 2 days ago. On the night preceding admission, she had uncontrollable nausea and vomiting. She was seen in the ED. She had a workup that revealed potassium of 3.3, normal kidney function, leukocytosis (11.4), hemoglobin 11.8 (stable from prior). She had a CT that revealed SBO with transition point involving a loop of small bowel cephalad to the bladder. NG tube was placed in the ED. It is currently sitting right at the GE junction. To be advanced by nursing. The reports that she lives with her daughter at home. She normally ambulates independently without assistive devices. She does her own IADLs. She moved up here from [facility] 12 years ago. She has 3 living adult children. She had a son who passed from a PE within the last 2 years. She lives with her daughter Amita. She says the niece would be her surrogate decision maker. She has not filled out POA paperwork previously. Have encouraged her to do so. She also has not thought about advance directives. At this time, she thinks she would want an effort of resuscitation if her heart were to stop. She would not like to remain on machines or in the hospital for the rest of her life. If there was no hope of her returning to a reasonable quality of life, she would not want further intervention. She is full code, full treatment Meds/Allgy Home Medications Ambulatory Orders Medication Instructions Recorded Confirmed krill 1,000 mg-omega-3 170 mg-dha 1 cap PO DAILY 07/1708/06/25 50 mg-epa 80 ka-qvvfuh-xlzvf capsule (krill oil) mecobalamin (vitamin B12) 500 mcg 500 mcg PO DAILY 08/2808/06/25 chewable tablet uwcksyoz-ityeumdd-fyvv 45 mg-folic 2 cap PO DAILY 07/0608/06/25 acid 800 mcg-vit K 120 mcg capsule (Bariatric Multivitamins) triamterene 37.5 1 cap PO DAILY #90 caps 05/3008/06/25 mg-hydrochlorothiazide 25 mg capsule albuterol sulfate 90 mcg/actuation 1 - 2 inh inhalatio n Q4H PRN 10/29/24 08/06/25 aerosol inhaler (Ventolin HFA) shortness of breath or wheezing #8.5 grams baclofen 10 mg tablet 10 mg PO DAILY 07/31/2510/30 coenzyme Q10 75 mg capsule (Ultra 75 mg PO DAILY 07/3108/06/25 CoQ10) multivitamin with iron (Daily 1 tab PO DAILY 07/31/25 08/06/25 Vitamin with Iron tablet) pantoprazole 40 mg tablet,delayed 40 mg PO QAM 5 08/06/25 release estradiol 0.025 mg/24 hr weekly 1 patch transdermal QW [place] #12 ea 08/02/25 08/06/25 transdermal patch (Climara) amlodipine 10 mg tablet (Norvasc) 10 mg PO DAILY 08/0608/06/25 estradiol 10 mcg vaginal tablet 10 mcg vaginal DAILY 1 10/07/24 08/06/25 (Vagifem) irbesartan 300 mg tablet 300 mg PO DAILY 08/06/2510/30 meloxicam 7.5 mg tablet 7.5 mg PO DAILY PRN pain 10/3008/06/25 timolol maleate 0.5 % eye drops 1 drp ophthalmic (eye) DAILY 08/06/25 08/06/25 Allergies Allergies Allergy/AdvReac Type Severity Reaction Status Date / Time lisinopril Allergy Cough Verified 08/06/25 04:41 Sulfa (Sulfonamide Allergy Respiratory Verified 08/06/25 04:41 Antibiotics) PFSH Active Problems All Active Problems (Updated 08/06/25 @ 13:37 by Ralph Chen DO) JOSH (obstructive sleep apnea) (Chronic) Small bowel obstruction (Acute) Complete obstruction of small intestine (Acute) MARIA VICTORIA (stress urinary incontinence, female) (Acute) Genitourinary syndrome of menopause (Acute) Menopausal syndrome on hormone replacement therapy (Acute) Osteoarthritis of knees, bilateral (Acute) Bilateral knee effusions (Acute) Strain of knee, bilateral (Acute) Recurrent left knee instability (Acute) Bilateral knee pain (Acute) Acute bilateral knee pain (Acute) Strain of muscle(s) and tendon(s) of the rotator cuff of right shoulder, subsequent encounter (Acute) Hypertension (Acute 06/26/20) Medical History Medical History (Updated 08/06/25 @ 13:37 by Ralph Chen DO) Sinusitis Headache Urinary tract infection Cystitis Uncontrolled hypertension Chest pain Arthralgia (06/26/20) Bilateral primary osteoarthritis of first carpometacarpal joints (04/26/22) COPD (chronic obstructive pulmonary disease) (07/16/15) Heart murmur (06/26/20) Liver cyst (06/26/20) Sleep apnea (06/26/20) Chronic diarrhea Neck pain COPD (chronic obstructive pulmonary disease) Hormone replacement therapy Colon polyps Hearing loss Chest pain (06/26/20) Renal artery stenosis (06/26/20) Pneumonia (06/26/20) Personal history of colonic polyps (07/16/15) Palpitations (06/26/20) Osteoarthritis of left knee (01/12/21) Knee pain, left (01/09/21) Hard of hearing (06/26/20) Surgical History Surgical History H/O total hysterectomy H/O bariatric surgery Family History Family History Father Cancer Mother Cancer Diabetes High blood pressure Social History Social History (Updated 07/31/25 @ 09:01 by Kailey Garza MA) Smoking Status: Former smoker If you are a former smoker, when did you quit? (Date/Year): 1986 Number of Years Smoked: 20 How many cigarettes a day do you smoke? (20 cigarettes=1 Pk): 20 Second hand tobacco smoke exposure: No Do you dip or chew tobacco?: No Do you vape?: No Patient requests smoking cessation consult: No Initiate information on smoking cessation: No Living arrangement: At home Living Condition: With family Physical Activity: other Level: Independent Do you feel safe in your home environment?: Yes History of physical, verbal, emotional, or financial abuse?: No ETOH Use: Liquor Frequency: Occasional ETOH - Additional Notes: When she drinks it's for 5 days in a row Substance Use: denies use Do you want to become in the next year?: No Are you sexually active?: No POLST Patient has POLST: No Exam Exam Vital Signs: Vital Signs x48h Pulse BP Pulse Ox 08/06/25 07:56 102 H 131/63 H 96 GEN: No acute distress HEENT: NC/AT, normal appearance of external ears and nose. Hearing baseline. NGT in place to suction Cardiac: Regular rate and rhythm, no murmurs. Euvolemic on exam Pulm: Lungs CTA bilaterally, no cough, no wheezes. Normal effort on room air Abdomen: Soft abdomen. Tender to deep palpation in the midepigastrium, but otherwise nontender. No rebound tenderness. No guarding. Extremities: Moves all 4 extremities equally. Normal tone. Neuro: Face symmetric, CN II through XII intact grossly. No focal neurologic deficits. Psych: Mood euthymic with congruent affect. Reasonable historian. Conclusion/Plan Problem List (1) Small bowel obstruction: Plan: Patient presented with acutely worsened abdominal pain, nausea and vomiting. She thinks her last bowel movement was around 08/04. She was having uncontrollable nausea as of 08/05 in the evening. On admission, she had a CT scan which revealed a small bowel obstruction with clear transition involving a loop of small bowel immediately cephalad to the bladder. NGT was placed in the ED, it is needing advanced. - Discussed the case with Dr. Diego in the ER, I have opted to admit this patient to the observation status - Discussed with general surgery, they are following along agree with the following plan - Keep NPO - Continue maintenance fluids - NGT to be advanced, by floor nurse - Will get repeat x-ray to make sure it has not coiled - NGT to intermittent suction - Allow her to decompress tonight - Will order SBFT for tomorrow (2) Hypertension: Plan: History of chronic hypertension. 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 - Currently n.p.o. - Will consider resuming home antihypertensives once she is eating or drinking - No need to acutely treat asymptomatic hypertension in the hospitalized patient Qualifiers: Hypertension type: unspecified Qualified Code(s): I10 - Essential (primary) hypertension (3) H/O bariatric surgery: Plan: History of gastric bypass surgery in 2011. Has been doing well with her weight in the last couple of years. She has started to gain weight since losing upwards of 70 pounds after her bypass. - (4) Osteoarthritis of knees, bilateral: Plan: Longstanding history of osteoarthritis. She has symptoms within her knees and and in her C-spine. She takes Mobic daily as needed for pain. Home medications include meloxicam 7.5 mg daily as needed. Uses most days. Uses baclofen 10 mg p.o. daily as needed for neck pain. Says she uses it about once a year. - Currently n.p.o. - Hold off on further NSAIDs right now - Pain management as above. Qualifiers: Osteoarthritis type: unspecified Qualified Code(s): M17.0 - Bilateral primary osteoarthritis of knee (5) JOSH (obstructive sleep apnea): Plan: Patient has a history of JOSH though it is fairly mild. Her AHI is 3.2. She did have hypoxemic kerri of oxygen at 85% during her study. Per her sleep study, she has no significant sleep disordered breathing. - She is on 2 L O2 via NC for sleep, continued this admission (6) COPD (chronic obstructive pulmonary disease): Plan: Per her report, she has had history of severe pneumonia in the past that precipitated this diagnosis. She is unclear if she has ever had PFTs. I do not see any scanned PFTs in her chart. She is only recently seen pulmonology for her JOSH. She is only on a as needed albuterol inhaler. - O2 as above for sleep - As needed albuterol Plan Plan by problem as above. I spent a total of 64 minutes in the care of this patient today. This time was spent reviewing labs, vital signs, imaging, interviewing and examining the patient, and discussing plan of care with them and their other care providers. Discussed with both ED provider and general surgery, I have decided to admit the patient to observation status. We are treating an acute illness posing risk to life and bodily function. [id number]. Lab Results Lab results reviewed: Yes 08/06/25 05:19 08/06/25 05:19 Diagnostic Imaging Results Diagnostic Imaging Results: positive Final report reviewed and Read independently Diagnostic Imaging Results Comments: CXR 08/06: Nasogastric tube projecting below the left hemidiaphragm. CT Abdomen Pelvis 08/06: Small bowel obstruction with transition point involving a loop of small bowel immediately cephalad to the bladder. Remote gastric bypass and hysterectomy.
[2025-08-06] MEDS: D5.45NS W/20 MEQ KCL 1,000 ML IV STA (10:01)
[2025-08-06] MEDS: BENZOCAINE/MENTHOL LOZENGE MM PRN (10:05)
--- NOTE | 2025-08-06 11:44 | PHARMACY PROGRESS NOTE ---
Best Possible Medication History Admit Date and Time: 08/06/25 0659 Home Medications Medication Instructions Recorded Confirmed Type krill 1,000 mg-omega-3 170 mg-dha 1 cap PO DAILY 07/1708/06/25 History 50 mg-epa 80 kd-etzlme-booli capsule (krill oil) mecobalamin (vitamin B12) 500 mcg 500 mcg PO DAILY 08/2808/06/25 History chewable tablet ecqdtxft-qxvineyq-ukru 45 mg-folic 2 cap PO DAILY 07/0608/06/25 History acid 800 mcg-vit K 120 mcg capsule (Bariatric Multivitamins) triamterene 37.5 1 cap PO DAILY #90 caps 05/3008/06/25 Rx mg-hydrochlorothiazide 25 mg capsule albuterol sulfate 90 mcg/actuation 1 - 2 inh inhalatio n Q4H PRN 10/29/24 08/06/25 Rx aerosol inhaler (Ventolin HFA) shortness of breath or wheezing #8.5 grams baclofen 10 mg tablet 10 mg PO DAILY 07/31/2510/30 History coenzyme Q10 75 mg capsule (Ultra 75 mg PO DAILY 07/3108/06/25 History CoQ10) multivitamin with iron (Daily 1 tab PO DAILY 07/31/25 08/06/25 History Vitamin with Iron tablet) pantoprazole 40 mg tablet,delayed 40 mg PO QAM 5 08/06/25 History release estradiol 0.025 mg/24 hr weekly 1 patch transdermal QW [place] #12 ea 08/02/25 08/06/25 Rx transdermal patch (Climara) amlodipine 10 mg tablet (Norvasc) 10 mg PO DAILY 08/0608/06/25 History estradiol 10 mcg vaginal tablet 10 mcg vaginal DAILY 1 10/07/24 08/06/25 History (Vagifem) irbesartan 300 mg tablet 300 mg PO DAILY 08/06/2510/30 History meloxicam 7.5 mg tablet 7.5 mg PO DAILY PRN pain 10/3008/06/25 History timolol maleate 0.5 % eye drops 1 drp ophthalmic (eye) DAILY 08/06/25 08/06/25 History Processed by: Pharmacy Medications reviewed in ED?: Yes Medication History completed: Yes Patient Interview: Completed Secondary Source(s): Insurance records [facility] Statement: As the person ultimately responsible for medication therapy, providers are able to order a medication from an existing home medication list in [facility] via the "Reconcile Routine" prior to Confirmation of that medication by office support clerk. Such practice is discouraged except when the physician, in their clinical judgment, deems that a medical need exists for a medication without regard to previous use.
--- NOTE | 2025-08-06 12:08 | CONSULTATION NOTE ---
Chief Complaint Chief Complaint Chief Complaint: Abdominal pain, nausea, vomiting History of Present Illness History Obtained From History obtained from: Patient on the Med/Surg floor History of Present Illness HPI Comment/Other: 80 yo F w/ past surgical history of hysterectomy and remote gastric bypass and pmh of OA, JOSH, COPD, hypertension, GERD and an undifferentiated diarrheal disorder that has been going on for several months who presents with acute onset nausea and vomiting. She states that she has had soft and loose stools that are unpredictable frequently for some time now and does not know the exact reason. Her last bowel movement may have been 2 days ago but on the night preceding admission, she had uncontrollable nausea and vomiting. She was seen in the ED and had a workup that revealed potassium of 3.3, normal kidney function, leukocytosis (11.4), hemoglobin 11.8 (stable from prior). She had a CT that revealed SBO with transition point involving a loop of small bowel cephalad to the bladder. NG tube was placed in the ED. PFSH Active Problems All Active Problems (Updated 08/06/25 @ 12:14 by Sathya Garcia MD) Small bowel obstruction (Acute) Complete obstruction of small intestine (Acute) MARIA VICTORIA (stress urinary incontinence, female) (Acute) Genitourinary syndrome of menopause (Acute) Menopausal syndrome on hormone replacement therapy (Acute) Osteoarthritis of knees, bilateral (Acute) Bilateral knee effusions (Acute) Strain of knee, bilateral (Acute) Recurrent left knee instability (Acute) Bilateral knee pain (Acute) Acute bilateral knee pain (Acute) Strain of muscle(s) and tendon(s) of the rotator cuff of right shoulder, subsequent encounter (Acute) Hypertension (Acute 06/26/20) Medical History Medical History (Updated 08/06/25 @ 12:14 by Sathya Garcia MD) Sinusitis Headache Urinary tract infection Cystitis Uncontrolled hypertension Chest pain Arthralgia (06/26/20) Bilateral primary osteoarthritis of first carpometacarpal joints (04/26/22) COPD (chronic obstructive pulmonary disease) (07/16/15) Heart murmur (06/26/20) Liver cyst (06/26/20) Sleep apnea (06/26/20) Chronic diarrhea Neck pain COPD (chronic obstructive pulmonary disease) Hormone replacement therapy Colon polyps Hearing loss Chest pain (06/26/20) Renal artery stenosis (06/26/20) Pneumonia (06/26/20) Personal history of colonic polyps (07/16/15) Palpitations (06/26/20) Osteoarthritis of left knee (01/12/21) Knee pain, left (01/09/21) Hard of hearing (06/26/20) Surgical History Surgical History H/O total hysterectomy H/O bariatric surgery Family History Family History Father Cancer Mother Cancer Diabetes High blood pressure Social History Social History (Updated 07/31/25 @ 09:01 by Kailey Garza MA) Smoking Status: Former smoker If you are a former smoker, when did you quit? (Date/Year): 1986 Number of Years Smoked: 20 How many cigarettes a day do you smoke? (20 cigarettes=1 Pk): 20 Second hand tobacco smoke exposure: No Do you dip or chew tobacco?: No Do you vape?: No Patient requests smoking cessation consult: No Initiate information on smoking cessation: No Living arrangement: At home Living Condition: With family Physical Activity: other Level: Independent Do you feel safe in your home environment?: Yes History of physical, verbal, emotional, or financial abuse?: No ETOH Use: Liquor Frequency: Occasional ETOH - Additional Notes: When she drinks it's for 5 days in a row Substance Use: denies use Do you want to become in the next year?: No Are you sexually active?: No POLST Patient has POLST: No Meds/Allgy Home Medications Ambulatory Orders Medication Instructions Recorded Confirmed krill 1,000 mg-omega-3 170 mg-dha 1 cap PO DAILY 07/1708/06/25 50 mg-epa 80 ty-sphoki-uvupj capsule (krill oil) mecobalamin (vitamin B12) 500 mcg 500 mcg PO DAILY 08/2808/06/25 chewable tablet qloholzq-tkjkeshf-vekh 45 mg-folic 2 cap PO DAILY 07/0608/06/25 acid 800 mcg-vit K 120 mcg capsule (Bariatric Multivitamins) triamterene 37.5 1 cap PO DAILY #90 caps 05/3008/06/25 mg-hydrochlorothiazide 25 mg capsule albuterol sulfate 90 mcg/actuation 1 - 2 inh inhalatio n Q4H PRN 10/29/24 08/06/25 aerosol inhaler (Ventolin HFA) shortness of breath or wheezing #8.5 grams baclofen 10 mg tablet 10 mg PO DAILY 07/31/25 1210/30 coenzyme Q10 75 mg capsule (Ultra 75 mg PO DAILY 07/3108/06/25 CoQ10) multivitamin with iron (Daily 1 tab PO DAILY 07/31/25 08/06/25 Vitamin with Iron tablet) pantoprazole 40 mg tablet,delayed 40 mg PO QAM 5 08/06/25 release estradiol 0.025 mg/24 hr weekly 1 patch transdermal QW [place] #12 ea 08/02/25 08/06/25 transdermal patch (Climara) amlodipine 10 mg tablet (Norvasc) 10 mg PO DAILY 08/0608/06/25 estradiol 10 mcg vaginal tablet 10 mcg vaginal DAILY 1 10/07/24 08/06/25 (Vagifem) irbesartan 300 mg tablet 300 mg PO DAILY 08/06/2510/30 meloxicam 7.5 mg tablet 7.5 mg PO DAILY PRN pain 10/3008/06/25 timolol maleate 0.5 % eye drops 1 drp ophthalmic (eye) DAILY 08/06/25 08/06/25 Allergies Allergies Allergy/AdvReac Type Severity Reaction Status Date / Time lisinopril Allergy Cough Verified 08/06/25 04:41 Sulfa (Sulfonamide Allergy Respiratory Verified 08/06/25 04:41 Antibiotics) Results Lab Results Lab results reviewed: Yes 08/06/25 05:19 08/06/25 05:19 Other Lab Results: Lab Results x24hrs 08/06/25 Range/Units 05:19 WBC 11.4 H (4.8-10.8) x10^3/uL RBC 4.16 L (4.20-5.40) 10^6/uL Hgb 11.8 L (12.0-16.0) g/dL Hct 36.5 L (37.0-47.0) % MCV 87.7 (81.0-99.0) fL MCH 28.4 (27.0-31.0) pg MCHC 32.3 (32.0-36.0) g/dL RDW 12.7 (12.0-15.0) % Plt Count 263 (130-450) 10^3/uL MPV 9.3 (7.9-10.8) fL Neut # (Auto) 10.5 H (1.5-6.6) 10^3/uL Lymph # (Auto) 0.4 L (1.5-3.5) 10^3/uL [place] # (Auto) 0.4 (0.0-1.0) 10^3/uL Eos # (Auto) 0.0 (0.0-0.7) 10^3/uL Baso # (Auto) 0.0 (0.0-0.1) 10^3/uL Absolute Nucleated RBC 0.00 x10^3/uL Nucleated RBC % 0.0 /100WBC Sodium 135 (135-145) mmol/L Potassium 3.3 L (3.5-4.5) mmol/L Chloride 100 L (101-111) mmol/L Carbon Dioxide 24 (21-32) mmol/L Anion Gap 11.0 (6-13) BUN 20 (6-20) mg/dL Creatinine 0.8 (0.6-1.3) mg/dL Estimated GFR (MDRD) 69 L (>89) Glucose 150 H (74-104) mg/dL Calcium 9.4 (8.5-10.3) mg/dL Total Bilirubin 0.4 (0.2-1.0) mg/dL AST 15 (10-42) IU/L ALT 10 (10-60) IU/L Alkaline Phosphatase 69 (42-121) IU/L Total Protein 6.3 L (6.4-8.9) g/dL Albumin 4.4 (3.2-5.5) g/dL Globulin 1.9 L (2.1-4.2) g/dL Albumin/Globulin Ratio 2.3 H (1.0-2.2) Lipase 26 (11-82) U/L Diagnostic Imaging Results Diagnostic Imaging Results: positive Final report reviewed and Read independently Review of Systems Status of ROS: 10 or more systems reviewed and unremarkable except as noted in history and below Exam Exam Vital Signs: Vital Signs x48h Temp Pulse Resp BP Pulse Ox 08/06/25 07:56 102 H 131/63 H 96 12/02/25 04:39 36.9 C 84 24 132/66 H 92 Constitutional normal general appearance and no apparent distress HENMT normocephalic and head/scalp atraumatic NGT in place with thin gastric output. Eyes conjunctivae normal and no scleral icterus Neck/C-Spine visual inspection normal Respiratory normal respiratory effort Cardiovascular normal heart rate noted and regular rhythm noted Gastrointestinal Abdomen mildly distended but soft to palpation with minimal TTP. No peritonitis or rebound. Extremities normal to inspection Neurology GCS 15 Psychiatry thought process normal, cooperative and affect normal Skin skin color normal Conclusion/Plan Problem List (1) Small bowel obstruction: Plan: 80 yo F w/ past surgical history of hysterectomy and remote gastric bypass and pmh of OA, JOSH, COPD, hypertension, GERD and an undifferentiated diarrheal disorder that has been going on for several months who presents with acute onset nausea and vomiting. CT demonstrated small bowel obstruction with transition point involving a loop of small bowel immediately cephalad to the bladder. - Continue NGT for decompression - NPO w/ IVF - Encourage OOB/ambulation - Pain and nausea control as needed - Recommend SBFT in the AM unless resolved - Rest of care per primary, surgery will continue to follow - Discussed with the patient and Dr. Reddy Lab Results Lab results reviewed: Yes 08/06/25 05:19 08/06/25 05:19 Diagnostic Imaging Results Diagnostic Imaging Results: positive Final report reviewed and Read independently
--- NOTE | 2025-08-06 12:34 | XRAY Report ---
PROCEDURE: XR Chest for Line Placement INDICATIONS: NGT advanced from prior, position check TECHNIQUE: One view of the chest was acquired. COMPARISON: Chest x-ray 225 FINDINGS: Surgical changes and devices: Nasogastric tube is present with distal tip projecting below the left hemidiaphragm. Lungs and pleura: No pleural effusions or pneumothorax. No consolidation. Mediastinum: Mediastinal contours appear normal. Heart size is enlarged. Bones and chest wall: No suspicious bony lesions. Overlying soft tissues appear unremarkable. IMPRESSION: Nasogastric tube projecting below the left hemidiaphragm. Reviewed by: Benita Silverman MD on 08/06/2025 12:31 PM PST Approved by: Benita Silverman MD on 08/06/2025 12:31 PM PST Station ID: [id number]
[2025-08-06] MEDS: PROCHLORPERAZINE 10 MG/2 ML VIAL IVP PRN (14:21)
[2025-08-06] MEDS: DEXTROSE 5%-0.45% NACL 1,000 ML IV SCH (22:00)
[2025-08-07 06:37] LABS: HCT - HEMATOCRIT 33.2 % (37.0-47.0); HGB - HEMOGLOBIN 10.3 g/dL (12.0-16.0); MEAN PLATELET VOLUME 9.5 fL (7.9-10.8); NRBC ABSOLUTE COUNT (AUTO) 0.00 x10^3/uL; NUCLEATED RED BLOOD CELLS AUTO 0.0 /100WBC; PLT - PLATELET COUNT 209 10^3/uL (130-450); RED CELL DISTRIBUTION WIDTH 13.1 % (12.0-15.0)
[2025-08-07] MEDS ORDERED: DIATR MEGLU/DIATRIZOATE SODIUM 120 ML BOTTLE ONE (06:57)
[2025-08-07 07:05] LABS: BUN - BLOOD UREA NITROGEN 13.0 mg/dL (6-20); CARBON DIOXIDE - CO2 29.0 mmol/L (21-32); CREATININE 0.6 mg/dL (0.6-1.3); GFR - MDRD 96.0 (>89)
[2025-08-07] MEDS: DIATR MEGLU/DIATRIZOATE SODIUM 120 ML BOTTLE PO ONE (07:35)
--- NOTE | 2025-08-07 07:53 | PROVIDER PROGRESS NOTE ---
Subjective General Admit Date: 08/06/25 Other Other Information/Narrative: Doing well this morning, abdominal pain improved, minimal NGT output, states that she is now passing flatus but no BM's. Review of Systems Status of ROS: 10 or more systems reviewed and unremarkable except as noted in history and below Exam Exam Vital Signs: Vital Signs x48h Temp Pulse Resp BP Pulse Ox O2 Flow Rate 08/07/25 06:00 36.4 C L 70 16 158/75 H 94 3 08/07/25 04:06 36.6 C 70 16 126/60 94 2 Constitutional normal general appearance and no apparent distress HENMT normocephalic and head/scalp atraumatic NGT in place with minimal thin gastric output. Eyes conjunctivae normal and no scleral icterus Neck/C-Spine visual inspection normal Respiratory normal respiratory effort Cardiovascular normal heart rate noted and regular rhythm noted Gastrointestinal Abdomen soft, non distended, non tender to palpation. Extremities normal to inspection Neurology GCS 15 Psychiatry thought process normal, cooperative and affect normal Skin skin color normal Impression/Plan Problem List (1) Small bowel obstruction: Plan: 80 yo F w/ past surgical history of hysterectomy and remote gastric bypass and pmh of OA, JOSH, COPD, hypertension, GERD and an undifferentiated diarrheal disorder that has been going on for several months who presents with acute onset nausea and vomiting. CT demonstrated small bowel obstruction with transition point involving a loop of small bowel immediately cephalad to the bladder. - D/c NGT - Clears and ADAT - HL IVF when tolerating diet - Encourage OOB/ambulation - Pain and nausea control as needed - Rest of care per primary, surgery will continue to follow (2) Hypertension: Qualifiers: Hypertension type: unspecified Qualified Code(s): I10 - Essential (primary) hypertension (3) H/O bariatric surgery: (4) Osteoarthritis of knees, bilateral: Qualifiers: Osteoarthritis type: unspecified Qualified Code(s): M17.0 - Bilateral primary osteoarthritis of knee (5) JOSH (obstructive sleep apnea): (6) COPD (chronic obstructive pulmonary disease):
[2025-08-07] MEDS: TIMOLOL 0.5% OPHTH DROPS EACHEYE SCH (08:47)
[2025-08-07] MEDS: ACETAMINOPHEN 1,000 MG/100 ML 1,000 MG/100 ML BAG IV PRN (08:49)
--- NOTE | 2025-08-07 10:18 | PROVIDER PROGRESS NOTE ---
Current Medications Current Medications Current Medications: Current Medications Generic Name Dose Route Start Last Admin Trade Name Freq PRN Reason Stop Dose Admin Hydromorphone HCl 0.5 mg 08/06/25 08:35 08/06/25 14:20 Hydromorphone 0.5 Mg/0.5 Ml Syringe IVP 0.5 mg Q2H PRN Administration Pain 8 to 10 Acetaminophen 1,000 mg in 100 mls @ 400 mls/hr 08/06/25 08:35 08/07/25 09:05 Acetaminophen IV Infused Q6HR PRN Infusion Moderate Pain (Level 4-6) Dextrose/Sodium Chloride 1,000 mls @ 83.333 mls/hr 08/06/25 20:00 08/07/25 10:02 D5.45ns IV 83.33 mls/hr .Q12H GAGANDEEP Infusion Ondansetron HCl 4 mg 08/06/25 08:35 Ondansetron Odt 4 Mg Tablet TL Q6HR PRN Nausea / Vomiting Ondansetron HCl 4 mg 08/06/25 08:35 08/06/25 09:01 Ondansetron 4 Mg/2 Ml Vial IVP 4 mg Q6HR PRN Administration Nausea / Vomiting Prochlorperazine Edisylate 10 mg 08/06/25 09:39 08/06/25 14:21 Prochlorperazine 10 Mg/2 Ml Vial IVP 10 mg Q6HR PRN Administration Nausea / Vomiting Sodium Chloride 10 ml 08/06/25 08:35 Sodium Chloride Flush 0.9% 10 Ml Syringe IVP PRN PRN NEEDED PER PROVIDER ORDERS Sodium Chloride 10 ml 08/06/25 09:00 08/07/25 08:47 Sodium Chloride Flush 0.9% 10 Ml Syringe IVP Not Given 0100,0900,1700 GAGANDEEP Throat Lozenges 1 lozenge 08/06/25 09:46 08/06/25 10:05 Benzocaine/Menthol Lozenge MM 1 lozenge Q2HR PRN Administration Throat pain Timolol Maleate 1 drops 08/07/25 09:00 08/07/25 08:47 Timolol 0.5% Ophth Drops EACHEYE Not Given DAILY GAGANDEEP Objective Vital Signs/Intake & Output Vital Signs: Vital Signs x48h Temp Pulse Resp BP Pulse Ox O2 Flow Rate 08/07/25 09:07 2 08/07/25 08:00 97.9 F 63 16 118/52 L 96 2 08/07/25 06:00 97.5 F L 70 16 158/75 H 94 3 08/07/25 04:06 97.9 F 70 16 126/60 94 2 Intake & Output: Intake & Output 08/04/25 08/05/25 08/06/25 08/07/25 23:59 23:59 23:59 23:59 Intake Total 2119 1085 / 1085 Balance 2119 1085 / 1085 Weight (kg) 67 kg Lab Results 08/07/25 06:12 08/07/25 06:12 Other Labs: Lab Results x24hrs 08/07/25 Range/Units 06:12 WBC 5.6 (4.8-10.8) x10^3/uL RBC 3.67 L (4.20-5.40) 10^6/uL Hgb 10.3 L (12.0-16.0) g/dL Hct 33.2 L (37.0-47.0) % MCV 90.5 (81.0-99.0) fL MCH 28.1 (27.0-31.0) pg MCHC 31.0 L (32.0-36.0) g/dL RDW 13.1 (12.0-15.0) % Plt Count 209 (130-450) 10^3/uL MPV 9.5 (7.9-10.8) fL Neut # (Auto) 4.4 (1.5-6.6) 10^3/uL Lymph # (Auto) 0.8 L (1.5-3.5) 10^3/uL [place] # (Auto) 0.3 (0.0-1.0) 10^3/uL Eos # (Auto) 0.1 (0.0-0.7) 10^3/uL Baso # (Auto) 0.0 (0.0-0.1) 10^3/uL Absolute Nucleated RBC 0.00 x10^3/uL Nucleated RBC % 0.0 /100WBC Sodium 137 (135-145) mmol/L Potassium 3.1 L (3.5-4.5) mmol/L Chloride 102 (101-111) mmol/L Carbon Dioxide 29 (21-32) mmol/L Anion Gap 6.0 (6-13) BUN 13 (6-20) mg/dL Creatinine 0.6 (0.6-1.3) mg/dL Estimated GFR (MDRD) 96 (>89) Glucose 119 H (74-104) mg/dL Calcium 8.7 (8.5-10.3) mg/dL Assessment/Plan Problem List (1) Small bowel obstruction: (2) Hypertension: Qualifiers: Hypertension type: unspecified Qualified Code(s): I10 - Essential (primary) hypertension (3) H/O bariatric surgery: (4) Osteoarthritis of knees, bilateral: Qualifiers: Osteoarthritis type: unspecified Qualified Code(s): M17.0 - Bilateral primary osteoarthritis of knee (5) JOSH (obstructive sleep apnea): (6) COPD (chronic obstructive pulmonary disease):
--- NOTE | 2025-08-07 12:21 | XRAY Report ---
PROCEDURE: XR SBFT Challenge Panel INDICATIONS: SBO TECHNIQUE: 1 view of the abdomen was acquired including mobile designer, immediate, 15, and 60-minute films. COMPARISON: [place] [address] FINDINGS: Surgical changes and devices: NG tube is in place. Faint staple line seen in the left midabdomen. Radiodensities projecting over the low pelvic soft tissues. Bowel: The bowel gas pattern is normal. Gas Torch Solderer image demonstrates a nonspecific, nonobstructive bowel gas pattern with prominent air-filled bowel loop in the left mid abdomen. Immediate film demonstrates prompt gastric pouch emptying into normal caliber duodenal loops and mildly prominent proximal jejunal loops. 15-minute film demonstrates rapid passage of contrast through normal caliber jejunal and ileal loops. By 60 minutes, there is contrast opacifying the proximal colon. There is no evidence of small bowel obstruction. Soft tissues: No masses; visualized solid organ contours appear normal in size. No suspicious abdominal calcifications. Bones: No suspicious bony abnormalities. IMPRESSION: Resolution of previous days small bowel obstruction. Reviewed by: Mali Rivera MD on 08/07/2025 12:18 PM PST Approved by: Mali Rivera MD on 08/07/2025 12:18 PM PST Station ID: [id number]
--- NOTE | 2025-08-07 13:41 | Discharge Summary ---
"Discharge Summary Admit Date: 08/06/25 Discharge Date: 08/07/25 Discharging Provider: Dr. Ronan Harrington Primary Care Provider: None - PCP List provided Discharge Facility Name: Home, self care DIAGNOSES Discharge Diagnoses with Status of Each Condition: Small bowel obstructionresolved. Likely in setting of gastric bypass surgery, possible adhesions. She follows with GI doctor, Dr. Guo. Advised to follow- up closely with general surgery and PCP in outpatient setting. Hypokalemialikely due to above diarrheal disorder. Continue outpatient follow- up. Continue oral supplementation at home - prescribed supplementation on discharge. Hold HCTZ at this time. Follow up in one week for recheck of potassium. Hypertensioncontinue home amlodipine, irbesartan. Advised to hold hydrochlorothiazide due to hypokalemia. OSAcontinue 2 L of oxygen at night. HPI History of Present Illness: Per Dr. Chen: Tammy is an 80-year-old female who with a past medical history of OA, JOSH, COPD, hypertension, and GERD with an undifferentiated diarrheal disorder that has been going on for several months who presents with acute onset nausea and vomiting. She is found to have a small bowel obstruction. She has remote history of gastric bypass and a hysterectomy. Tammy reports that she does not currently have a primary care doctor. In the last year, she has previously seen Lydia Birmingham, outpatient specialists with Dr. Guo (GI) and Dr. Larsen (pulmonology). She reports no clear explanation for her diarrheal disorder. Reports that she has soft and loose stools that are unpredictable frequently. Her last bowel movement may have been 2 days ago. On the night preceding admission, she had uncontrollable nausea and vomiting. She was seen in the ED. She had a workup that revealed potassium of 3.3, normal kidney function, leukocytosis (11.4), hemoglobin 11.8 (stable from prior). She had a CT that revealed SBO with transition point involving a loop of small bowel cephalad to the bladder. NG tube was placed in the ED. It is currently sitting right at the GE junction. To be advanced by nursing. The reports that she lives with her daughter at home. She normally ambulates independently without assistive devices. She does her own IADLs. She moved up here from [facility] 12 years ago. She has 3 living adult children. She had a son who passed from a PE within the last 2 years. She lives with her daughter Amita. She says the niece would be her surrogate decision maker. She has not filled out POA paperwork previously. Have encouraged her to do so. She also has not thought about advance directives. At this time, she thinks she would want an effort of resuscitation if her heart were to stop. She would not like to remain on machines or in the hospital for the rest of her life. If there was no hope of her returning to a reasonable quality of life, she would not want further intervention. She is full code, full treatment CONSULTS | PROCEDURES Consultations: General surgery Procedures: SBFT, chest x-ray, CT abdomen HOSPITAL COURSE Hospital Course: Patient presented with acute abdominal pain, as well as nausea and vomiting. CT scan revealed small bowel obstruction. NG tube was placed, bowel rest, IV fluids were started. General surgery was consulted. She had a small bowel follow-through study done the a.m. after admission, with passage of contrast into the colon. NG tube was removed. Patient no longer had abdominal pain, nausea or vomiting. She had a bowel movement, and is passing gas. She tolerated liquid diet well. As such, she was discharged home in stable condition. She was advised to follow-up with general surgery in the outpatient, as well as a primary care provider. She was discharged home in stable condition. ALLERGIES Allergies Allergy/AdvReac Type Severity Reaction Status Date / Time lisinopril Allergy Cough Verified 08/06/25 04:41 Sulfa (Sulfonamide Allergy Respiratory Verified 08/06/25 04:41 Antibiotics) MEDICATIONS Ambulatory Orders Medication Instructions Recorded Confirmed krill 1,000 mg-omega-3 170 mg-dha 1 cap PO DAILY 07/1708/06/25 50 mg-epa 80 me-gnizkb-vrruq capsule (krill oil) mecobalamin (vitamin B12) 500 mcg 500 mcg PO DAILY 08/2808/06/25 chewable tablet txsofgce-rapxqbba-qvkh 45 mg-folic 2 cap PO DAILY 07/0608/06/25 acid 800 mcg-vit K 120 mcg capsule (Bariatric Multivitamins) triamterene 37.5 1 cap PO DAILY #90 caps /05/3008/06/25 mg-hydrochlorothiazide 25 mg capsule albuterol sulfate 90 mcg/actuation 1 - 2 inh inhalatio n Q4H PRN 10/29/24 08/06/25 aerosol inhaler (Ventolin HFA) shortness of breath or wheezing #8.5 grams baclofen 10 mg tablet 10 mg PO DAILY 07/31/25 1210/30 coenzyme Q10 75 mg capsule (Ultra 75 mg PO DAILY 07/3108/06/25 CoQ10) multivitamin with iron (Daily 1 tab PO DAILY 07/31/25 08/06/25 Vitamin with Iron tablet) pantoprazole 40 mg tablet,delayed 40 mg PO QAM 5 08/06/25 release estradiol 0.025 mg/24 hr weekly 1 patch transdermal QW [place] #12 ea 08/02/25 08/06/25 transdermal patch (Climara) amlodipine 10 mg tablet (Norvasc) 10 mg PO DAILY 08/0608/06/25 estradiol 10 mcg vaginal tablet 10 mcg vaginal DAILY 1 10/07/24 08/06/25 (Vagifem) irbesartan 300 mg tablet 300 mg PO DAILY 08/06/2510/30 meloxicam 7.5 mg tablet 7.5 mg PO DAILY PRN pain 10/3008/06/25 timolol maleate 0.5 % eye drops 1 drp ophthalmic (eye) DAILY 08/06/25 08/06/25 potassium chloride 10 mEq 10 meq PO DAILY #14 tabs 12/28 tablet,extended release (Klor-Con) PHYSICAL EXAM AT DISCHARGE Vital Signs: Vital Signs x48h Temp Pulse Resp BP Pulse Ox O2 Flow Rate 08/07/25 16:15 98.1 F 58 L 20 146/70 H 2 L 08/07/25 16:15 98.1 F 58 L 20 146/70 H 98 2 08/07/25 14:40 97.5 F L 57 L 18 135/61 H 95 2 General Appearance: positive No acute distress and Alert; negative Anxious Eyes Bilateral: positive Normal inspection, PERRL and EOMI ENT: positive ENT inspection nml, Pharynx nml and No signs of dehydration Neck: positive Nml inspection, Thyroid nml and No JVD Respiratory: positive Chest non-tender, No respiratory distress, Breath sounds nml and Other (on 2L oxygen when seen in AM); negative Wheezes, Rales or Rhonchi Cardiovascular: positive Regular rate & rhythm, No murmur and No gallop Abdomen: positive Non-tender and No organomegaly; negative Guarding, Rebound, Hepatomegaly or Splenomegaly Back: positive Nml inspection; negative CVA tenderness (R) or CVA tenderness (L) Skin: positive Color nml, No rash, Warm and Dry Extremities: positive Non-tender, Full ROM, Nml appearance and No pedal edema Neurologic/Psychiatric: positive Oriented x3, Motor nml and Mood/affect nml LABS 08/07/25 06:12 08/07/25 06:12 DIAGNOSTIC IMAGING Diagnostic Imaging Results: Final report reviewed FOLLOW UP Follow Up: Follow up PCP. Follow up surgery. TIME SPENT Time Spent in Discharge (Minutes): 35 Discharge Plan Discharge Patient Disposition: Home, Self Care Condition: Stable Prescriptions: New potassium chloride [Klor-Con 10] 10 mEq tablet extended release 10 meq PO DAILY Qty: 14 0RF Continued triamterene-hydrochlorothiazid 37.5-25 mg capsule 1 cap PO DAILY Qty: 90 3RF estradiol [Climara] 0.025 mg/24 hr patch weekly 1 patch transdermal QWEEK Qty: 12 1RF Patient Comments: Every Tuesday albuterol sulfate [Ventolin HFA] 90 mcg/actuation HFA aerosol inhaler 1 - 2 inh inhalation Q4H PRN (Reason: shortness of breath or wheezing) Qty: 8.5 0RF meloxicam 7.5 mg tablet 7.5 mg PO DAILY PRN (Reason: pain) Patient Comments: TAKE ONE TABLET BY MOUTH ONCE DAILY NEEDED timolol maleate 0.5 % drops 1 drp ophthalmic (eye) DAILY Patient Comments: INSTILL ONE DROP INTO EACH EYE ONCE DAILY amlodipine [Norvasc] 10 mg tablet 10 mg PO DAILY irbesartan 300 mg tablet 300 mg PO DAILY estradiol [Vagifem] 10 mcg tablet 10 mcg vaginal DAILY Rx Instructions: Place in the vagina every day for 2 weeks and then twice weekly. krill oil [id number] mg capsule 1 cap PO DAILY mecobalamin (vitamin B12) 500 mcg tablet,chewable 500 mcg PO DAILY Bariatric Multivitamins 45 mg iron- 800 mcg-120 mcg capsule 2 cap PO DAILY baclofen 10 mg tablet 10 mg PO DAILY pantoprazole 40 mg tablet,delayed release (DR/EC) 40 mg PO QAM multivitamin with iron [Daily Vitamin with Iron] Tablet 1 tab PO DAILY Ultra CoQ10 75 mg capsule 75 mg PO DAILY Diet: Soft Interventions: Belongings Inventory Last Done: 08/06/25 10:00 Discharge Last Done: 08/07/25 17:32 Discharge Checklist - Nursing Last Done: 08/07/25 17:29 Discharge Vital Signs (30 Minutes) Last Done: 08/07/25 16:15 Health Concerns: Small Bowel Obstruction Discharge Instructions You are being discharged after treatment for a small bowel obstruction. This occurs when your small intestine becomes blocked, preventing food and fluids from passing through normally. Follow these instructions carefully to ensure proper recovery and prevent complications. Diet and Nutrition - Start with clear liquids (water, broth, juice without pulp, gelatin) and advance slowly as tolerated. - Progress to a low-residue diet (avoiding high-fiber foods, raw vegetables, nuts, seeds, and whole grains) over the next several days. - Eat small, frequent meals rather than large portions. - Chew food thoroughly and eat slowly. - Stay well-hydrated by drinking plenty of fluids throughout the day. - Avoid foods that are difficult to digest until cleared by your surgeon Activity - Resume light activities as tolerated, but avoid heavy lifting (more than 10-15 pounds) for 4-6 weeks - Take short walks several times daily to promote bowel function - Gradually increase activity level as you feel stronger - Rest when tired and avoid overexertion Warning Signs - Seek Immediate Medical Attention If You Experience: - Severe abdominal pain that is worsening or different from your previous pain. - Persistent nausea and vomiting, especially if you cannot keep down liquids. - Fever above 101F (38.3C). - Abdominal distention or swelling. - No bowel movements or passing gas for more than 2-3 days. - Blood in vomit or stool. - Signs of dehydration: decreased urination, dizziness, extreme thirst, dry mouth. - Inability to tolerate any food or liquids. Follow-Up Care - Keep all scheduled appointments. - Discuss any concerns about your recovery with your healthcare team. Small bowel obstruction can recur, particularly if caused by adhesions (scar tissue) from previous surgeries. You have a higher risk of developing another obstruction in the future, so it is important to recognize warning signs early and seek medical attention promptly if symptoms return. Contact your surgeon's office if you have any questions or concerns about your recovery. Do not wait if you experience any of the warning signs listed above. Print Language: Citizen Of [place] Patient Instructions: Small Bowel Obstruction Stand Alone Forms: PCP List Follow-up Care: Sathya Garcia MD [Provider Admit Priv/Credential, Surgery, General] Vitals documented within 30 minutes of discharge?: Yes"
[2025-08-07 16:37] VITALS: BP 146/70; TEMP 98.1
[2025-08-07 17:35] VITALS: O2SAT 2
--- OUTSIDE RECORDS SUMMARY | 2025-08-10 18:26 | EXTERNAL MEDICAL SUMMARY RPT | Encounter Summary ---
Author Organization [facility] Address [address] [place] [address] Care Team Providers Care Activities Director Scouting Name Role Phone Lydia Birmingham LIZY Primary Care Provider [phone] Reason for Visit * Reason Comments Med Refill Encounter Details Date Type Department Care Team (Late st Contact Info) Description 07/13/2025 Refill [facility] [address] [phone] Sathya Valentin MD [address] [id number] Primary osteoarthritis of both knees (Primary Dx); Right knee pain, unspecified chronicity Social History Tobacco Use Types Packs/Day Years Used Date Smoking Tobacco: Former Cigarettes Smokeless Tobacco: Never Alcohol Use Standard Drinks/Week Comments Yes 0 (1 standard drink = 0.6 oz pur e alcohol) occasional Comments No Sex and Gender Information Value Date Recorded Sex Assigned at Not on file Legal Sex Female 12:16 PM PST Gender Identity Not on file Sexual Orientation Not on file documented as of this encounter Miscellaneous Notes * Telephone Encounter - Saumya Lopez RN - 07/15/2025 8:33 AM PST Requested Prescriptions Pending Prescriptions Disp Refills meloxicam (MOBIC) 7.5 mg tablet [Pharmacy Med Name: Meloxicam 7.5 Mg Tab Unic] 30 tablet 0 Sig: TAKE ONE TABLET BY MOUTH ONCE DAILY NEEDED DOS: No Surgeries noted, just a colonoscopy 12/28/24. DX: Pre-existing Osteoarthritis to the knee, Right knee pain Last Refill Date: Meloxicam 7.5 mg noted in 's Note, but not showing up on the Med list. Pharmacy: [facility] in [place], [place] Last OV Date: 06/27/[address] Valentin Next OV Date: 07/25/[address] Navarro Routing to Dr. Valentin to review and sign if appropriate. documented in this encounter Plan of Treatment Upcoming Encounters Date Type Department Care Team (Late st Contact Info) Description 09/12/2025 1:30 PM PST Office Visit [facility] [address] [phone] Sathya Valentin MD [address] [phone] documented as of this encounter Visit Diagnoses Diagnosis Primary osteoarthritis of both knees- Primary Right knee pain, unspecified chronicity documented in this encounter Care Teams Activities Director Scouting Relationship Specialty Start Date End Date Lydia Birmingham NP [address] [place] [phone] PCP - General Nurse Practitioner Family 12/28/24 documented as of this encounter
--- OUTSIDE RECORDS SUMMARY | 2025-08-10 18:26 | EXTERNAL MEDICAL SUMMARY RPT | Clinical Summary ---
Author Organization [facility] Address [address] [place] [address] Care Team Providers Care Hemodialysis Rn Name Role Phone Lydia Birmingham LIZY Primary Care Provider [phone] Allergies Active Allergy Reactions Criticality Noted Date Comments Lisinopril-Hydrochlo rothiazide Cough 12/28/2024 Sulfa (Sulfonamide Antibiotics) Other (see comments),Shortness of breath High 05/31/2014 Difficulty Breathing Medications amLODIPine (NORVASC) 10 mg tablet Take 1 tablet (10 mg total) by mouth daily Active triamterene-hydroch lorothiazid (MAXZIDE-25) 37.5-25 mg Take 1 tablet by mouth daily Active irbesartan (AVAPRO) 300 mg tablet Active albuterol HFA (ProAir/Ventolin/Pr oventil) 90 mcg/actuation inhaler 5 Active baclofen (LIORESAL) 10 mg tablet Take 1 tablet (10 mg total) by mouth 3 (three) times a day as needed for muscle spasms 5 Active pantoprazole (PROTONIX) 40 mg EC tablet Take 1 tablet (40 mg total) by mouth daily Take 30 min before eating 30 tablet 11 5 12/29/19 26 Active meloxicam (MOBIC) 7.5 mg tabletIndications:P rimary osteoarthritis of both knees,Right knee pain, unspecified chronicity TAKE ONE TABLET BY MOUTH ONCE DAILY NEEDED 30 tablet 5 Active Active Problems Problem Noted Date Diagnosed Date Primary osteoarthritis of both knees 06/27/2025 Change in bowel habit 09/19/2024 Chronic diarrhea 09/19/2024 Epigastric burning sensation 09/19/2024 Esophageal pain 09/19/2024 Encounters Date Type Department Care Team Description 07/25/2025 1:00 PM PST Office Visit [facility] Medicine [address] [place] [phone] Sathya Valentin MD Primary osteoarthritis of both knees (Primary Dx) 07/13/2025 Refill [facility] [address] [phone] Sathya Valentin MD Primary osteoarthritis of both knees (Primary Dx); Right knee pain, unspecified chronicity 07/10/2025 Telephone [facility] [address] [phone] Jaqueline Haddad MD 06/27/2025 2:30 PM PDT Office Visit [facility] [address] [place] [phone] Sathya Valentin MD Primary osteoarthritis of both knees (Primary Dx) from Last 3 Months Family History Medical History Relation Comments Bladder Cancer Father Pancreatic cancer Mother Relation Status Comments Father Mother Social History Tobacco Use Types Packs/Day Years Used Date Smoking Tobacco: Former Cigarettes Smokeless Tobacco: Never Tobacco Cessation:Counseling Given: Not Answered Alcohol Use Standard Drinks/Week Comments Yes 0 (1 standard drink = 0.6 oz pur e alcohol) occasional Comments No Sex and Gender Information Value Date Recorded Sex Assigned at Not on file Legal Sex Female 12:16 PM PST Gender Identity Not on file Sexual Orientation Not on file Last Filed Vital Signs Vital Sign Reading Time Taken Comments Blood Pressure 127/72 07/25/2025 1:31 PM PST Pulse 62 07/25/2025 12:51 PM PST Temperature 36.7 C (98 F) 06/27/2025 2:29 PM PDT Respiratory Rate 16 06/27/2025 2:29 PM PDT Oxygen Saturation 92% 07/25/2025 12:51 PM PST Inhaled Oxygen Concentration - - Weight 65.8 kg (145 lb) 07/25/2025 12:51 PM PST Height 162.6 cm (5' 4") 06/27/2025 2:29 PM PDT Body Mass Index 24.89 06/27/2025 2:29 PM PDT Plan of Treatment Upcoming Encounters Date Type Department Care Team (Late st Contact Info) Description 09/12/2025 1:30 PM PST Office Visit [facility] [address] [place] [phone] Sathya Valentin MD [address], [place] [address] Health Maintenance Due Date Last Done Comments Depression Screening (PHQ-2) 1957 Fall Risk Screening 2010 HM Pneumococcal Adult 50+ (2 of 2 - PCV20 or PCV21) 07/04/2016 07/04/2015 RSV Patients Over 60 years OR qualifying ( Patients) (1 - 1-dose 75+ series) 2020 COVID-19 Vaccine ( season) 2025 06/06/2025, 05/30/2024, 02/06/2022, Additional history exists DTaP,Tdap,and Td Vaccines (2 - Td or Tdap) 04/08/2033 04/08/2023 Zoster Vaccines Completed 01/07/2023, 09/17/2022 Influenza Vaccine Completed 06/06/2025, , 05/12/2023, Additional history exists HPV Vaccines Aged Out No longer eligi ble based on patient's age to complete this topic Hepatitis A Vaccines Aged Out No long er eligible based on patient's age to complete this topic Hepatitis B Vaccines Aged Out No long er eligible based on patient's age to complete this topic IPV Vaccines Aged Out No longer eligi ble based on patient's age to complete this topic MMR Vaccines Aged Out No longer eligi ble based on patient's age to complete this topic Insurance [facility] [place] [employer] Advance Directives * Full Code (Latest Code Status on File) Date Activated Date Inactivated Comments 12/28/2024 9:10 AM 12/28/2024 12:28 PM Question Answer Comments Discussed the code status with patient and/or fa regina: No Care Teams Hemodialysis Rn Relationship Specialty Start Date End Date Lydia Birmingham NP [address] [place] [phone] PCP - General Nurse Practitioner Family 12/28/24
--- OUTSIDE RECORDS SUMMARY | 2025-08-10 18:26 | EXTERNAL MEDICAL SUMMARY RPT | Patient Health Record ---
Author Organization [facility] Address [address] [place] [address] Care Team Providers Care Interior Design Coordinator Name Role Phone BLANE SWANN Unavailable [phone] Reason For Referral No Information Medications Medication SIG (Take, Route, Frequency, Duration) Notes Start Date End Date Status Simvastatin ; Duration: 90 days *please review for potential update for e-prescription and drug interaction check* once a day; 'DUE FOR OFFICE VISIT' 08/13/2011 Active Omeprazole ; Duration: 0 days *please review for potential update for e-prescription and drug interaction check* once a day; 'Discontinued.' 02/26/2011 Active Tracy ; Duration: 14 days *please review for potential update for e-prescription and drug interaction check* once a day 11/29/2011 Active Fluticasone Propionate ; Duration: 30 days *please review for potential update for e-prescription and drug interaction check* as directed; '2 sprays each nostril QD' 05/09/2012 Active Triamterene-HCTZ ; Duration: 0 days *please review for potential update for e-prescription and drug interaction check* once a day; 'Discontinued.' 02/26/2011 Active Vitamin D (Ergocalciferol) ; Duration: 0 days *please review for potential update for e-prescription and drug interaction check* 'vitamin D levels now in normal range' 02/26/2011 Active Klor-Con 10 ; Duration: 30 days *please review for potential update for e-prescription and drug interaction check* once a day 08/12/2011 Active Spiriva HandiHaler ; Duration: 30 days *please review for potential update for e-prescription and drug interaction check* as directed; 'one puff QD' 08/19/2011 Active BIEST Capsule ; Duration: 30 days *please review for potential update for e-prescription and drug interaction check* once a day; '1.25 mg PO QD' 11/25/2011 Active Flovent HFA ; Duration: 30 days *please review for potential update for e-prescription and drug interaction check* twice a day 05/09/2012 Active Aspirin ; Duration: 0 days *please review for potential update for e-prescription and drug interaction check* 'Discontinued.' 02/26/2011 Active Portable oxygen concentrator Miscellaneous ; Duration: 30 days *please review for potential update for e-prescription and drug interaction check* as directed; 'to use at work; Please provide concentrator plus any supplies. Would you provide a pulse oximeter?' 02/08/2012 Active OXYGEN Miscellaneous ; Duration: 30 days *please review for potential update for e-prescription and drug interaction check* 'O2 conserving dev on 2 L - NC DX Hypoxia' 11/23/2012 Active Immunizations Vaccine Route Administration Date Status Comme nts Influenza, seasonal, injectable, preservative free, 3 yrs and above Unknown 05/27/2011 Administered ,sourcenam e : Influenza Plan Of Treatment No Information Insurance Providers Payer Name Payer Address Payer Phone Subscriber Number Group Number Insured Name Patient Relationship to Insured Coverage Start Date Coverage End Date [employer] of [place] [address] ARMINDA BARBER [phone] [id number] Tammy Yepez Self - patient is the insured 0
== END 2025-08-07 16:30 | disposition home or self-care (01) ==
LOC: MS2 04:36 → ED 04:36 → MS2 08:00
PROVIDERS: ADMIT Student in an Organized Health Care Education/Training Program; ATTEND Student in an Organized Health Care Education/Training Program
DX: Z79.890 Hormone replacement therapy; Z98.84 Bariatric surgery status; I10 Essential (primary) hypertension; M17.0 Bilateral primary osteoarthritis of knee; J44.9 Chronic obstructive pulmonary disease, unspecified; Z87.891 Personal history of nicotine dependence; K56.601 Complete intestinal obstruction, unspecified as to cause; Z79.899 Other long term (current) drug therapy; G47.33 Obstructive sleep apnea (adult) (pediatric); Z98.0 Intestinal bypass and anastomosis status; K21.9 Gastro-esophageal reflux disease without esophagitis